=== PATIENT | male | born 1935 | race African-American/Black ===

== ENCOUNTER 2021-07-17 11:26 | Inpatient (IN) | payer OTHER, BC ==
[2021-07-17 12:24] VITALS: BMI 26.4
[2021-07-17 14:29] LABS: BASO % 0.7 % (0-2.0); EOS % 0.9 % (0-4.5); HEMATOCRIT 37.2 % (35.4-49); HEMOGLOBIN 12.1 GM/dL (11.7-16.9); LYMPH % 21.7 % (8-40); MCH 29.5 pg (25.7-33.7); MCHC 32.5 g/dl (32.0-35.9); MEAN CELL VOLUME 90.9 fl (80-96); MEAN PLT VOLUME 9.8 fl (7.5-11.1); MONO % 10.1 % (3.8-10.2); NEUT % 66.6 % (42.8-82.8); PLATELET COUNT 152 10^3/uL (134-434); RBC 4.09 M/mm3 (4.00-5.60); RDW 16.1 % (11.9-15.9); WHITE BLOOD COUNT 6.8 K/mm3 (4.0-10.0)
[2021-07-17 15:03] LABS: ALBUMIN 3.1 g/dl (3.4-5.0); CALCIUM 9.1 mg/dL (8.5-10.1); MAGNESIUM 2.4 mg/dL (1.8-2.4)
[2021-07-17 15:06] LABS: CREATININE 1.2 mg/dL (0.55-1.3)
[2021-07-17 15:08] LABS: BILIRUBIN,TOTAL 0.8 mg/dL (0.2-1); TOT PROT 6.7 g/dl (6.4-8.2)
[2021-07-17 15:19] LABS: BLOOD UREA NITROGEN 26.5 mg/dL (7-18)
[2021-07-17] MEDS ORDERED: FUROSEMIDE 40 MG/4 ML INJECTABLE VIAL IVPUSH ONE (15:31)
[2021-07-17] MEDS ORDERED: ASPIRIN 81 MG CHEWABLE TABLETS ONE (15:33)
[2021-07-17] MEDS ORDERED: FUROSEMIDE 40 MG TABLET (FP) ONE (15:47)
[2021-07-17 20:57] LABS: URINE APPEARANCE CLEAR; URINE BILIRUBIN NEGATIVE (NEGATIVE); URINE COLOR YELLOW; URINE GLUCOSE (UA) NEGATIVE (NEGATIVE); URINE KETONE NEGATIVE (NEGATIVE); URINE LEUK ESTERASE NEGATIVE (NEGATIVE); URINE NITRITE NEGATIVE (NEGATIVE); URINE PROTEIN NEGATIVE (NEGATIVE); URINE UROBILINOGEN 0.2 mg/dL (0.2-1.0)
[2021-07-17] MEDS ORDERED: MELATONIN 5 MG TABLETS PO ONE (21:05)
[2021-07-17] MEDS: APIXABAN 5 MG TABLET PO SCH (21:12)
[2021-07-17] MEDS: ATORVASTATIN CA 40 MG TABLET (FP) PO SCH (21:12)
[2021-07-17] MEDS: ASPIRIN 81 MG CHEWABLE TABLETS PO SCH (21:12)
[2021-07-17] MEDS: INSULIN SLIDING SCALE (NOVOLOG) 1 VIAL SQ SCH (21:16)
[2021-07-18] MEDS: INSULIN SLIDING SCALE (NOVOLOG) 1 VIAL SQ SCH ×4 (06:10→21:17)
[2021-07-18 08:08] LABS: ALBUMIN 2.9 g/dl (3.4-5.0); CALCIUM 8.3 mg/dL (8.5-10.1)
[2021-07-18 08:09] LABS: BLOOD UREA NITROGEN 15.1 mg/dL (7-18); MAGNESIUM 1.6 mg/dL (1.8-2.4)
[2021-07-18 08:11] LABS: CREATININE 0.7 mg/dL (0.55-1.3); PHOSPHOROUS 2.2 mg/dL (2.5-4.9)
[2021-07-18 08:13] LABS: BILIRUBIN,TOTAL 0.9 mg/dL (0.2-1); TOT PROT 6.6 g/dl (6.4-8.2)
[2021-07-18] MEDS ORDERED: PT OWN MED DRAWER 7, Y5N ONE (09:42)
[2021-07-18] MEDS: NIFEdipine E.R. 30 MG TABLET PO SCH (09:48)
[2021-07-18] MEDS: FUROSEMIDE 40 MG/4 ML INJECTABLE VIAL IVPUSH SCH (09:48)
[2021-07-18] MEDS: APIXABAN 5 MG TABLET PO SCH ×2 (09:48→21:08)
[2021-07-18] MEDS ORDERED: ENOXAPARIN NA (PORCINE) 40 MG/0.4 ML DISP.SYRIN SQ SCH (10:00)
[2021-07-18] MEDS ORDERED: FUROSEMIDE 40 MG/4 ML INJECTABLE VIAL IVPUSH SCH (10:00)
[2021-07-18] MEDS ORDERED: MAGNESIUM OXIDE 400 MG TABLET (FP) PO ONE (10:15)
[2021-07-18] MEDS ORDERED: PNEUMOC 13-VAL CONJ-DIP CRM/PF 0.5 ML DISP.SYRIN IM ONE (14:00)
[2021-07-18] MEDS: ENALAPRIL MALEATE 5 MG TABLET PO SCH (14:15)
[2021-07-18] MEDS ORDERED: MELATONIN 5 MG TABLETS PO PRN (19:28)
[2021-07-18] MEDS: ASPIRIN 81 MG CHEWABLE TABLETS PO SCH (21:07)
[2021-07-18] MEDS: DOCUSATE SODIUM 100 MG CAPSULE (FP) PO SCH (21:08)
[2021-07-18] MEDS: ATORVASTATIN CA 40 MG TABLET (FP) PO SCH (21:08)
[2021-07-18] MEDS: PREGABALIN 75 MG CAPSULE PO SCH (21:08)
[2021-07-18] MEDS: POLYETHYLENE GLYCOL (HEALTHYLAX) 3350 17 GM PACKET PO SCH (21:08)
[2021-07-19] MEDS: INSULIN SLIDING SCALE (NOVOLOG) 1 VIAL SQ SCH ×4 (06:54→21:40)
[2021-07-19] MEDS: MULTIVITAMINS (DAILY MVI) TABLET (FP) PO SCH (10:06)
[2021-07-19] MEDS: PREGABALIN 75 MG CAPSULE PO SCH ×4 (10:06→21:33)
[2021-07-19] MEDS: ENALAPRIL MALEATE 5 MG TABLET PO SCH (10:06)
[2021-07-19] MEDS: NIFEdipine E.R. 30 MG TABLET PO SCH (10:06)
[2021-07-19] MEDS: CYANOCOBALAMIN 1,000 MCG TABLET (FP) PO SCH (10:06)
[2021-07-19] MEDS: APIXABAN 5 MG TABLET PO SCH ×2 (10:06→21:33)
[2021-07-19] MEDS: ALLOPURINOL 300 MG TABLET (FP) PO SCH (10:06)
[2021-07-19] MEDS: POLYETHYLENE GLYCOL (HEALTHYLAX) 3350 17 GM PACKET PO SCH ×2 (10:06→21:29)
[2021-07-19] MEDS: FUROSEMIDE 40 MG/4 ML INJECTABLE VIAL IVPUSH SCH (10:06)
[2021-07-19] MEDS: metoPROLOL SUCCINATE 25 MG TAB.SR.24H (FP) PO SCH (11:41)
[2021-07-19] MEDS: metFORMIN HCL 500 MG TABLET (FP) PO SCH (12:20)
[2021-07-19] MEDS ORDERED: MAGNESIUM OXIDE 400 MG TABLET (FP) PO ONE (14:19)
[2021-07-19] MEDS: DOCUSATE SODIUM 100 MG CAPSULE (FP) PO SCH (21:32)
[2021-07-19] MEDS: ASPIRIN 81 MG CHEWABLE TABLETS PO SCH (21:33)
[2021-07-19] MEDS: ATORVASTATIN CA 40 MG TABLET (FP) PO SCH (21:42)
[2021-07-20] MEDS: metFORMIN HCL 500 MG TABLET (FP) PO SCH (06:02)
[2021-07-20] MEDS: INSULIN SLIDING SCALE (NOVOLOG) 1 VIAL SQ SCH ×4 (06:02→22:08)
[2021-07-20 07:49] LABS: BASO % 0.4 % (0-2.0); EOS % 2.1 % (0-4.5); HEMATOCRIT 37.1 % (35.4-49); HEMOGLOBIN 12.3 GM/dL (11.7-16.9); LYMPH % 29.1 % (8-40); MCH 29.6 pg (25.7-33.7); MCHC 33.2 g/dl (32.0-35.9); MEAN CELL VOLUME 89.4 fl (80-96); MEAN PLT VOLUME 9.7 fl (7.5-11.1); MONO % 11.6 % (3.8-10.2); NEUT % 56.8 % (42.8-82.8); PLATELET COUNT 158 10^3/uL (134-434); RBC 4.15 M/mm3 (4.00-5.60); RDW 15.7 % (11.9-15.9); WHITE BLOOD COUNT 6.2 K/mm3 (4.0-10.0)
[2021-07-20 08:39] LABS: ALBUMIN 2.7 g/dl (3.4-5.0); CALCIUM 8.6 mg/dL (8.5-10.1)
[2021-07-20 08:41] LABS: BLOOD UREA NITROGEN 19.9 mg/dL (7-18)
[2021-07-20 08:43] LABS: CREATININE 1.1 mg/dL (0.55-1.3); MAGNESIUM 2.1 mg/dL (1.8-2.4)
[2021-07-20 08:44] LABS: BILIRUBIN,TOTAL 0.8 mg/dL (0.2-1)
[2021-07-20] MEDS: POTASSIUM CHLORIDE TABS 20 MEQ TABLET.ER (FP) PO SCH ×2 (09:18→22:09)
[2021-07-20] MEDS: POLYETHYLENE GLYCOL (HEALTHYLAX) 3350 17 GM PACKET PO SCH ×2 (09:19→22:09)
[2021-07-20] MEDS: metoPROLOL SUCCINATE 25 MG TAB.SR.24H (FP) PO SCH (09:19)
[2021-07-20] MEDS: MULTIVITAMINS (DAILY MVI) TABLET (FP) PO SCH (09:19)
[2021-07-20] MEDS: PREGABALIN 75 MG CAPSULE PO SCH ×4 (09:19→22:09)
[2021-07-20] MEDS: APIXABAN 5 MG TABLET PO SCH ×2 (09:19→22:09)
[2021-07-20] MEDS: ENALAPRIL MALEATE 10 MG TABLET PO SCH (09:20)
[2021-07-20] MEDS: CYANOCOBALAMIN 1,000 MCG TABLET (FP) PO SCH (09:20)
[2021-07-20] MEDS: ALLOPURINOL 300 MG TABLET (FP) PO SCH (09:22)
[2021-07-20] MEDS ORDERED: FUROSEMIDE 40 MG TABLET (FP) PO SCH (10:00)
[2021-07-20] MEDS ORDERED: MAGNESIUM CITRATE 300 ML BOTTLE PO PRN (14:44)
[2021-07-20] MEDS ORDERED: LACTULOSE 20 GM/30 ML UDC (FOR ORAL USE ONLY) PO ONE (14:45)
[2021-07-20] MEDS: DOCUSATE SODIUM 100 MG CAPSULE (FP) PO SCH (22:08)
[2021-07-20] MEDS: ASPIRIN 81 MG CHEWABLE TABLETS PO SCH (22:09)
[2021-07-20] MEDS: ATORVASTATIN CA 40 MG TABLET (FP) PO SCH (22:09)
[2021-07-21] MEDS: INSULIN SLIDING SCALE (NOVOLOG) 1 VIAL SQ SCH ×4 (06:08→22:47)
[2021-07-21] MEDS: metFORMIN HCL 500 MG TABLET (FP) PO SCH (06:08)
[2021-07-21 08:05] LABS: BASO % 0.5 % (0-2.0); EOS % 2.4 % (0-4.5); HEMATOCRIT 36.4 % (35.4-49); HEMOGLOBIN 12.3 GM/dL (11.7-16.9); LYMPH % 24.4 % (8-40); MCH 29.9 pg (25.7-33.7); MCHC 33.8 g/dl (32.0-35.9); MEAN CELL VOLUME 88.5 fl (80-96); MEAN PLT VOLUME 9.5 fl (7.5-11.1); MONO % 9.8 % (3.8-10.2); NEUT % 62.9 % (42.8-82.8); PLATELET COUNT 155 10^3/uL (134-434); RBC 4.11 M/mm3 (4.00-5.60); RDW 15.6 % (11.9-15.9); WHITE BLOOD COUNT 6.2 K/mm3 (4.0-10.0)
[2021-07-21 08:37] LABS: ALBUMIN 2.8 g/dl (3.4-5.0); BLOOD UREA NITROGEN 25.6 mg/dL (7-18); CALCIUM 8.9 mg/dL (8.5-10.1)
[2021-07-21 08:38] LABS: MAGNESIUM 2.3 mg/dL (1.8-2.4)
[2021-07-21 08:41] LABS: CREATININE 1.2 mg/dL (0.55-1.3); TOT PROT 6.3 g/dl (6.4-8.2)
[2021-07-21 08:43] LABS: BILIRUBIN,TOTAL 0.8 mg/dL (0.2-1)
[2021-07-21] MEDS: APIXABAN 5 MG TABLET PO SCH ×2 (09:35→21:35)
[2021-07-21] MEDS: CYANOCOBALAMIN 1,000 MCG TABLET (FP) PO SCH (09:36)
[2021-07-21] MEDS: ALLOPURINOL 300 MG TABLET (FP) PO SCH (09:36)
[2021-07-21] MEDS: ENALAPRIL MALEATE 10 MG TABLET PO SCH (09:36)
[2021-07-21] MEDS: MULTIVITAMINS (DAILY MVI) TABLET (FP) PO SCH (09:36)
[2021-07-21] MEDS: metoPROLOL SUCCINATE 25 MG TAB.SR.24H (FP) PO SCH (09:36)
[2021-07-21] MEDS: POLYETHYLENE GLYCOL (HEALTHYLAX) 3350 17 GM PACKET PO SCH ×2 (09:36→21:35)
[2021-07-21] MEDS: PREGABALIN 75 MG CAPSULE PO SCH ×4 (09:36→21:36)
[2021-07-21] MEDS: BISACODYL 5 MG TABLET.DR (FP) PO PRN (11:57)
[2021-07-21] MEDS ORDERED: SODIUM PHOSPHATE/NA BIPHOS 133 ML ENEMA PR ONE (12:34)
[2021-07-21] MEDS: ASPIRIN 81 MG CHEWABLE TABLETS PO SCH (21:35)
[2021-07-21] MEDS: DOCUSATE SODIUM 100 MG CAPSULE (FP) PO SCH (21:35)
[2021-07-21] MEDS: ATORVASTATIN CA 40 MG TABLET (FP) PO SCH (21:36)
[2021-07-22] MEDS: metFORMIN HCL 500 MG TABLET (FP) PO SCH (06:35)
[2021-07-22] MEDS: INSULIN SLIDING SCALE (NOVOLOG) 1 VIAL SQ SCH ×2 (06:35→11:53)
[2021-07-22 07:23] VITALS: TEMP 98.3
[2021-07-22 08:53] LABS: BASO % 0.6 % (0-2.0); HEMOGLOBIN 12.5 GM/dL (11.7-16.9); MCHC 33.8 g/dl (32.0-35.9); MEAN CELL VOLUME 88.8 fl (80-96); MEAN PLT VOLUME 9.7 fl (7.5-11.1); MONO % 9.8 % (3.8-10.2); NEUT % 62.6 % (42.8-82.8); PLATELET COUNT 154 10^3/uL (134-434); RBC 4.17 M/mm3 (4.00-5.60); RDW 15.5 % (11.9-15.9)
[2021-07-22 09:06] LABS: CALCIUM 8.5 mg/dL (8.5-10.1)
[2021-07-22 09:07] LABS: ALBUMIN 2.6 g/dl (3.4-5.0); BLOOD UREA NITROGEN 22.8 mg/dL (7-18); MAGNESIUM 2.5 mg/dL (1.8-2.4)
[2021-07-22 09:10] LABS: CREATININE 1.1 mg/dL (0.55-1.3)
[2021-07-22 09:12] LABS: BILIRUBIN,TOTAL 0.6 mg/dL (0.2-1); TOT PROT 6.2 g/dl (6.4-8.2)
[2021-07-22] MEDS: CYANOCOBALAMIN 1,000 MCG TABLET (FP) PO SCH (09:29)
[2021-07-22] MEDS: ENALAPRIL MALEATE 10 MG TABLET PO SCH (09:29)
[2021-07-22] MEDS: MULTIVITAMINS (DAILY MVI) TABLET (FP) PO SCH (09:29)
[2021-07-22] MEDS: BISACODYL 5 MG TABLET.DR (FP) PO PRN (09:29)
[2021-07-22] MEDS: POLYETHYLENE GLYCOL (HEALTHYLAX) 3350 17 GM PACKET PO SCH (09:29)
[2021-07-22] MEDS: ALLOPURINOL 300 MG TABLET (FP) PO SCH (09:29)
[2021-07-22] MEDS: APIXABAN 5 MG TABLET PO SCH (09:29)
[2021-07-22] MEDS: PREGABALIN 75 MG CAPSULE PO SCH ×2 (09:29→15:00)
[2021-07-22] MEDS: metoPROLOL SUCCINATE 25 MG TAB.SR.24H (FP) PO SCH (09:29)
[2021-07-22] MEDS ORDERED: SODIUM PHOSPHATE/NA BIPHOS 133 ML ENEMA PR ONE (10:26)
[2021-07-22 15:26] VITALS: BP 98/54; PULSE 73
== END 2021-07-22 17:36 | disposition home or self-care (01) | DRG 175 ==
LOC: JER 11:26 → JERBED 15:51 → J4S 20:40
PROVIDERS: ADMIT Internal Medicine; ATTEND Nurse Practitioner Family
DX: I26.99 Other pulmonary embolism without acute cor pulmonale (principal); I50.43 Acute on chronic combined systolic (congestive) and diastolic (congestive) heart failure; E87.0 Hyperosmolality and hypernatremia; J98.11 Atelectasis; J90 Pleural effusion, not elsewhere classified; I24.8 Other forms of acute ischemic heart disease; I11.0 Hypertensive heart disease with heart failure; E78.5 Hyperlipidemia, unspecified; E11.9 Type 2 diabetes mellitus without complications; G62.9 Polyneuropathy, unspecified; Z85.46 Personal history of malignant neoplasm of prostate
CPT/HCPCS: 36415; 70450-TC; 71045-TC-FY; 71275-TC; 76705-TC; 80053; 80061; 81003; 82550; 82553; 82962; 83036; 83735; 83880; 84100; 84443; 84484; 85025; 93005; 93010; 93306-TC; 97116-GP; 97161-GP; 99285-25; C9803; Q9967; U0003; U0005

== ENCOUNTER 2021-12-16 04:26 | Day surgery (SDC) | payer OTHER, BC ==
[2021-12-15 15:33] VITALS: BMI 24.3
[2021-12-16] MEDS ORDERED: LIDOCAINE HCL 1% PRESERVATIVE FREE - 30ML VIAL IJ ONE (11:25)
[2021-12-16] MEDS ORDERED: IOHEXOL 180 MG/1 ML ML IJ ONE (11:25)
[2021-12-16] MEDS ORDERED: DEXAMETHASONE SOD PHOSPHATE 10 MG/1 ML VIAL IVPUSH ONE (11:26)
[2021-12-16 12:53] VITALS: BP 135/83; PULSE 81; TEMP 98.2
== END 2021-12-16 13:00 | disposition home or self-care (01) ==
LOC: JASU-SURG 04:26
PROVIDERS: ATTEND Pain Medicine Pain Medicine
PROC: 3E0R33Z Introduction of Anti-inflammatory into Spinal Canal, Percutaneous Approach (ICD-10-PCS; 2021-12-16)
PROC: B01BYZZ Fluoroscopy of Spinal Cord using Other Contrast (ICD-10-PCS; 2021-12-16)
PROC: 3E0R3BZ Introduction of Anesthetic Agent into Spinal Canal, Percutaneous Approach (ICD-10-PCS; principal; 2021-12-16 11:30)
DX: M54.16 Radiculopathy, lumbar region (principal); M48.061 Spinal stenosis, lumbar region without neurogenic claudication; I10 Essential (primary) hypertension; E11.42 Type 2 diabetes mellitus with diabetic polyneuropathy
CPT/HCPCS: 76000-TC-FY; J1100

== ENCOUNTER 2022-06-09 04:24 | Day surgery (SDC) | payer OTHER, BC ==
[2022-06-05 13:57] VITALS: BMI 23.4
[2022-06-09 06:27] VITALS: BP 135/83; PULSE 92; RESP 20; TEMP 98
== END 2022-06-09 09:00 | disposition home or self-care (01) ==
LOC: JASU-SURG 04:24
PROVIDERS: ATTEND Pain Medicine Pain Medicine
DX: Z53.8 Procedure and treatment not carried out for other reasons (principal)
CPT/HCPCS: 82962

== ENCOUNTER 2022-06-16 04:26 | Day surgery (SDC) | payer OTHER, BC ==
[2022-06-12 11:41] VITALS: BMI 23.4
[2022-06-16] MEDS ORDERED: LIDOCAINE HCL/PF 2% SDV 5ML VIAL ONE (07:35)
[2022-06-16] MEDS ORDERED: LIDOCAINE HCL/PF 1% SDV 5ML VIAL ONE (07:36)
[2022-06-16 07:48] VITALS: RESP 16
[2022-06-16] MEDS ORDERED: MIDAZOLAM HCL 2 MG/2 ML SINGLE DOSE VIAL ONE (08:25)
[2022-06-16] MEDS ORDERED: ONDANSETRON 4 MG/2 ML VIAL ONE (09:29)
[2022-06-16] MEDS ORDERED: CLINDAMYCIN 600MG PREMIX IVPB 600 MG/50 ML BAG IVPB ONE ×2 (09:34→09:55)
[2022-06-16] MEDS ORDERED: CLINDAMYCIN 600 MG PREMIX BAG IVPB ONE ×2 (09:35)
[2022-06-16] MEDS ORDERED: LIDOCAINE HCL 1% PRESERVATIVE FREE - 30ML VIAL IJ ONE ×2 (09:35)
[2022-06-16] MEDS ORDERED: IOHEXOL 180 MG/1 ML ML IJ ONE ×2 (09:45)
[2022-06-16] MEDS ORDERED: LIDOCAINE HCL/PF 2% SDV 5ML VIAL INF ONE ×2 (09:46)
[2022-06-16] MEDS ORDERED: DEXAMETHASONE SOD PHOSPHATE 10 MG/1 ML VIAL IVPUSH ONE (10:42)
[2022-06-16 12:58] VITALS: BP 134/79; PULSE 82; TEMP 97.2
== END 2022-06-16 13:14 | disposition home or self-care (01) ==
LOC: JASU-SURG 04:26
PROVIDERS: ATTEND Pain Medicine Pain Medicine
PROC: BR19ZZZ Fluoroscopy of Lumbar Spine (ICD-10-PCS; 2022-06-16)
PROC: 01NB3ZZ Release Lumbar Nerve, Percutaneous Approach (ICD-10-PCS; principal; 2022-06-16 08:30)
DX: M48.062 Spinal stenosis, lumbar region with neurogenic claudication (principal); E11.9 Type 2 diabetes mellitus without complications; I10 Essential (primary) hypertension; Z79.84 Long term (current) use of oral hypoglycemic drugs
CPT/HCPCS: 0275T; C1889; 76000-TC-FY; 82962; 88304-TC; J1100

== ENCOUNTER 2022-07-17 04:10 | Day surgery (SDC) | payer OTHER, BC ==
[2022-07-16 12:15] VITALS: BMI 23.6
[2022-07-17] MEDS ORDERED: BUPIVACAINE HCL/PF 0.5% (5MG/ML) 10 ML VIAL ONE (07:18)
[2022-07-17] MEDS ORDERED: LIDOCAINE HCL/PF 1% SDV 5ML VIAL ONE (07:18)
[2022-07-17] MEDS ORDERED: TRIAMCINOLONE ACET 40MG/1ML VIAL ONE (07:18)
[2022-07-17] MEDS ORDERED: LIDOCAINE HCL 1% PRESERVATIVE FREE - 30ML VIAL IJ ONE (12:34)
[2022-07-17] MEDS ORDERED: TRIAMCINOLONE ACET 40MG/1ML VIAL IJ ONE (12:34)
[2022-07-17] MEDS ORDERED: BUPIVACAINE HCL/PF 0.5% (5 MG/ML) 30 ML VIAL IJ ONE (12:34)
[2022-07-17 12:43] VITALS: RESP 20
[2022-07-17 14:34] VITALS: BP 140/80; PULSE 80; TEMP 98.6
== END 2022-07-17 14:30 | disposition home or self-care (01) ==
LOC: JASU-SURG 04:10
PROVIDERS: ATTEND Pain Medicine Pain Medicine
PROC: 3E0U3BZ Introduction of Anesthetic Agent into Joints, Percutaneous Approach (ICD-10-PCS; 2022-07-17)
PROC: 3E0U33Z Introduction of Anti-inflammatory into Joints, Percutaneous Approach (ICD-10-PCS; principal; 2022-07-17 13:30)
DX: M53.3 Sacrococcygeal disorders, not elsewhere classified (principal); I10 Essential (primary) hypertension; E11.40 Type 2 diabetes mellitus with diabetic neuropathy, unspecified
CPT/HCPCS: 76000-TC-FY

== ENCOUNTER 2022-11-23 04:16 | Inpatient (IN) | payer OTHER, BC ==
[2022-11-23 04:31] VITALS: BMI 23.3
[2022-11-23] MEDS ORDERED: ACETAMINOPHEN 1000 MG/100 ML BAG IVPB ONE (05:37)
[2022-11-23] MEDS ORDERED: ACETAMINOPHEN INJECTION 100 ML IVPB ONE (05:46)
[2022-11-23] MEDS ORDERED: morphine CARPU-JECT 2 MG/1 ML DISP.SYRIN IVPUSH ONE (05:50)
[2022-11-23] MEDS ORDERED: KETOROLAC TROMETHAMINE 30 MG/1 ML VIAL IVPUSH ONE (06:22)
[2022-11-23] MEDS ORDERED: KETOROLAC TROMETHAMINE 30 MG/1 ML VIAL ONE (06:41)
[2022-11-23 06:45] LABS: BASO % 0.4 % (0-2.0); EOS % 0.1 % (0-4.5); HEMATOCRIT 39.3 % (35.4-49); HEMOGLOBIN 13.4 GM/dL (11.7-16.9); LYMPH % 5.2 % (8-40); MCHC 34.1 g/dl (32.0-35.9); MEAN CELL VOLUME 87.9 fl (80-96); MEAN PLT VOLUME 8.9 fl (7.5-11.1); MONO % 5.9 % (3.8-10.2); NEUT % 88.4 % (42.8-82.8); PLATELET COUNT 158 10^3/uL (134-434); RBC 4.48 M/mm3 (4.00-5.60); RDW 16.5 % (11.9-15.9); WHITE BLOOD COUNT 11.1 K/mm3 (4.0-10.0)
[2022-11-23 06:50] LABS: INR 1.48 (0.83-1.09); PROTHROMBIN TIME (PATIENT) 17.1 SEC (9.7-13.0)
[2022-11-23 06:52] LABS: ACTIVATED PTT 29.6 SECONDS (25.2-36.5)
[2022-11-23 07:10] LABS: CALCIUM 9.4 mg/dL (8.5-10.1)
[2022-11-23 07:11] LABS: ALBUMIN 3.8 g/dl (3.4-5.0); BLOOD UREA NITROGEN 24.4 mg/dL (7-18)
[2022-11-23 07:15] LABS: BILIRUBIN,TOTAL 1.2 mg/dL (0.2-1)
[2022-11-23 07:16] LABS: TOT PROT 7.6 g/dl (6.4-8.2)
[2022-11-23] MEDS ORDERED: ACETAMINOPHEN 1000 MG/100 ML BAG IVPB PRN (11:16)
[2022-11-23 11:27] LABS: BILIRUBIN,DIRECT 0.4 mg/dL (0.0-0.2)
[2022-11-23] MEDS ORDERED: NIFEdipine E.R. 30 MG TABLET PO SCH (11:30)
[2022-11-23] MEDS ORDERED: ENALAPRIL MALEATE 5 MG TABLET ONE (12:21)
[2022-11-23] MEDS ORDERED: POLYETHYLENE GLYCOL (HEALTHYLAX) 3350 17 GM PACKET ONE (12:21)
[2022-11-23] MEDS ORDERED: APIXABAN 5 MG TABLET ONE (12:22)
[2022-11-23] MEDS ORDERED: CHOLECALCIFEROL (VIT D3) 1,000 UNIT (25 MCG) TABLET ONE ×2 (12:22→12:25)
[2022-11-23] MEDS ORDERED: NIFEdipine E.R. 30 MG TABLET PO ONE (12:22)
[2022-11-23] MEDS ORDERED: LIDOCAINE 5% TOPICAL PATCH ONE (12:22)
[2022-11-23] MEDS: APIXABAN 5 MG TABLET PO SCH ×2 (12:56→21:15)
[2022-11-23] MEDS: LIDOCAINE 5% TOPICAL PATCH TP SCH (12:56)
[2022-11-23] MEDS: POLYETHYLENE GLYCOL (HEALTHYLAX) 3350 17 GM PACKET PO SCH (12:57)
[2022-11-23] MEDS: ALLOPURINOL 300 MG TABLET (FP) PO SCH (12:57)
[2022-11-23] MEDS: INSULIN SLIDING SCALE (NOVOLOG) 1 VIAL SQ SCH ×2 (20:34→21:14)
[2022-11-23] MEDS: PREGABALIN 75 MG CAPSULE PO SCH (21:15)
[2022-11-23] MEDS: LIDOCAINE PATCH REMOVAL MC SCH (21:18)
[2022-11-23] MEDS: SENNOSIDES 8.6MG TABLET (FP) PO SCH (21:35)
[2022-11-23] MEDS ORDERED: ROSUVASTATIN CA 10 MG TABLET PO SCH (22:00)
[2022-11-23] MEDS ORDERED: metoPROLOL SUCCINATE 25 MG TAB.SR.24H (FP) PO ONE (22:14)
[2022-11-24] MEDS ORDERED: metoPROLOL SUCCINATE 25 MG TAB.SR.24H (FP) PO ONE (01:45)
[2022-11-24] MEDS: PREGABALIN 75 MG CAPSULE PO SCH ×6 (06:22→22:00)
[2022-11-24] MEDS: INSULIN SLIDING SCALE (NOVOLOG) 1 VIAL SQ SCH ×4 (06:28→21:58)
[2022-11-24 08:53] LABS: HEMATOCRIT 35.4 % (35.4-49); HEMOGLOBIN 12.1 GM/dL (11.7-16.9); LYMPH % 12.3 % (8-40); MCH 30.1 pg (25.7-33.7); MCHC 34.2 g/dl (32.0-35.9); MEAN CELL VOLUME 88.1 fl (80-96); MEAN PLT VOLUME 9.6 fl (7.5-11.1); MONO % 5.2 % (3.8-10.2); NEUT % 78.5 % (42.8-82.8); PLATELET COUNT 134 10^3/uL (134-434); RBC 4.01 M/mm3 (4.00-5.60); RDW 16.5 % (11.9-15.9); WHITE BLOOD COUNT 7.8 K/mm3 (4.0-10.0)
[2022-11-24 09:11] LABS: CALCIUM 8.9 mg/dL (8.5-10.1)
[2022-11-24 09:12] LABS: BLOOD UREA NITROGEN 31.2 mg/dL (7-18); MAGNESIUM 1.9 mg/dL (1.8-2.4)
[2022-11-24 09:15] LABS: CREATININE 1.2 mg/dL (0.55-1.3); PHOSPHOROUS 3.4 mg/dL (2.5-4.9)
[2022-11-24 09:16] LABS: BILIRUBIN,TOTAL 0.9 mg/dL (0.2-1)
[2022-11-24] MEDS: CHOLECALCIFEROL (VIT D3) 1,000 UNIT (25 MCG) TABLET PO SCH (09:48)
[2022-11-24] MEDS: POLYETHYLENE GLYCOL (HEALTHYLAX) 3350 17 GM PACKET PO SCH (09:48)
[2022-11-24] MEDS: APIXABAN 5 MG TABLET PO SCH ×2 (09:49→21:58)
[2022-11-24] MEDS: metoPROLOL SUCCINATE 25 MG TAB.SR.24H (FP) PO SCH (09:49)
[2022-11-24] MEDS: CYANOCOBALAMIN 1,000 MCG TABLET (FP) PO SCH (09:49)
[2022-11-24] MEDS: LIDOCAINE 5% TOPICAL PATCH TP SCH (09:49)
[2022-11-24 10:00] LABS: ALBUMIN 2.9 g/dl (3.4-5.0)
[2022-11-24] MEDS: ALLOPURINOL 300 MG TABLET (FP) PO SCH (10:06)
[2022-11-24] MEDS: ENALAPRIL MALEATE 5 MG TABLET PO SCH (12:09)
[2022-11-24 12:51] LABS: N-TERMINAL BNP 3476.2 pg/ml (5-450)
[2022-11-24] MEDS: ACETAMINOPHEN 650 MG/20.3 ML ORAL SOLUTION (CUPS) PO SCH ×2 (16:42→21:59)
[2022-11-24] MEDS ORDERED: NITROGLYCERIN SUBLINGUAL 1/150 0.4 MG TAB ONE (19:42)
[2022-11-24] MEDS: ATORVASTATIN CA 40 MG TABLET (FP) PO SCH (21:59)
[2022-11-24] MEDS ORDERED: ATORVASTATIN CA 80 MG TABLET (FP) PO SCH (22:00)
[2022-11-24] MEDS: LIDOCAINE PATCH REMOVAL MC SCH (22:00)
[2022-11-24] MEDS: SENNOSIDES 8.6MG TABLET (FP) PO SCH (22:01)
[2022-11-25] MEDS: ACETAMINOPHEN 650 MG/20.3 ML ORAL SOLUTION (CUPS) PO SCH ×4 (04:25→21:34)
[2022-11-25] MEDS: INSULIN SLIDING SCALE (NOVOLOG) 1 VIAL SQ SCH ×4 (06:06→21:33)
[2022-11-25 07:37] LABS: HEMATOCRIT 36.4 % (35.4-49); HEMOGLOBIN 12.4 GM/dL (11.7-16.9); MCH 30.1 pg (25.7-33.7); MCHC 34.1 g/dl (32.0-35.9); MEAN CELL VOLUME 88.3 fl (80-96); MEAN PLT VOLUME 9.8 fl (7.5-11.1); PLATELET COUNT 119 10^3/uL (134-434); RBC 4.12 M/mm3 (4.00-5.60); RDW 16.3 % (11.9-15.9); WHITE BLOOD COUNT 7.4 K/mm3 (4.0-10.0)
[2022-11-25 08:05] LABS: CALCIUM 9.1 mg/dL (8.5-10.1)
[2022-11-25 08:06] LABS: BLOOD UREA NITROGEN 31.3 mg/dL (7-18); MAGNESIUM 2.2 mg/dL (1.8-2.4)
[2022-11-25 08:08] LABS: CREATININE 1.1 mg/dL (0.55-1.3)
[2022-11-25 08:09] LABS: PHOSPHOROUS 3.6 mg/dL (2.5-4.9)
[2022-11-25 08:10] LABS: BILIRUBIN,TOTAL 0.9 mg/dL (0.2-1); TOT PROT 6.4 g/dl (6.4-8.2)
[2022-11-25] MEDS: ENALAPRIL MALEATE 5 MG TABLET PO SCH (09:33)
[2022-11-25] MEDS: ALLOPURINOL 300 MG TABLET (FP) PO SCH (09:34)
[2022-11-25] MEDS: POLYETHYLENE GLYCOL (HEALTHYLAX) 3350 17 GM PACKET PO SCH (09:34)
[2022-11-25] MEDS: APIXABAN 5 MG TABLET PO SCH ×2 (09:34→21:32)
[2022-11-25] MEDS: CHOLECALCIFEROL (VIT D3) 1,000 UNIT (25 MCG) TABLET PO SCH (09:34)
[2022-11-25] MEDS: metoPROLOL SUCCINATE 25 MG TAB.SR.24H (FP) PO SCH (09:34)
[2022-11-25] MEDS: CYANOCOBALAMIN 1,000 MCG TABLET (FP) PO SCH (09:34)
[2022-11-25] MEDS: PREGABALIN 75 MG CAPSULE PO SCH ×4 (09:34→21:32)
[2022-11-25] MEDS: LIDOCAINE 5% TOPICAL PATCH TP SCH (09:34)
[2022-11-25] MEDS: ATORVASTATIN CA 40 MG TABLET (FP) PO SCH (21:32)
[2022-11-25] MEDS: LIDOCAINE PATCH REMOVAL MC SCH (21:32)
[2022-11-25] MEDS: SENNOSIDES 8.6MG TABLET (FP) PO SCH (21:38)
[2022-11-26] MEDS: ACETAMINOPHEN 650 MG/20.3 ML ORAL SOLUTION (CUPS) PO SCH ×2 (04:28→11:08)
[2022-11-26 05:51] VITALS: RESP 18; TEMP 97.4
[2022-11-26] MEDS: INSULIN SLIDING SCALE (NOVOLOG) 1 VIAL SQ SCH ×2 (06:16→11:20)
[2022-11-26] MEDS: metoPROLOL SUCCINATE 25 MG TAB.SR.24H (FP) PO SCH (11:09)
[2022-11-26] MEDS: APIXABAN 5 MG TABLET PO SCH (11:09)
[2022-11-26] MEDS: CYANOCOBALAMIN 1,000 MCG TABLET (FP) PO SCH (11:09)
[2022-11-26] MEDS: CHOLECALCIFEROL (VIT D3) 1,000 UNIT (25 MCG) TABLET PO SCH (11:09)
[2022-11-26] MEDS: PREGABALIN 75 MG CAPSULE PO SCH (11:09)
[2022-11-26] MEDS: ENALAPRIL MALEATE 5 MG TABLET PO SCH (11:09)
[2022-11-26] MEDS: LIDOCAINE 5% TOPICAL PATCH TP SCH (11:10)
[2022-11-26] MEDS: POLYETHYLENE GLYCOL (HEALTHYLAX) 3350 17 GM PACKET PO SCH (11:10)
[2022-11-26] MEDS ORDERED: INSULIN SLIDING SCALE (NOVOLOG) 1 VIAL SQ ONE (11:19)
[2022-11-26] MEDS: ALLOPURINOL 300 MG TABLET (FP) PO SCH (11:21)
[2022-11-26 17:12] VITALS: BP 102/60; PULSE 70
== END 2022-11-26 13:40 | DRG 65 ==
LOC: JER 04:16 → JERBED 06:56 → J4S 15:48
PROVIDERS: ADMIT Internal Medicine; ATTEND Internal Medicine
DX: I63.9 Cerebral infarction, unspecified (principal); I47.20 Ventricular tachycardia, unspecified; I50.42 Chronic combined systolic (congestive) and diastolic (congestive) heart failure; M25.511 Pain in right shoulder; M79.604 Pain in right leg; M48.00 Spinal stenosis, site unspecified; M25.551 Pain in right hip; E78.5 Hyperlipidemia, unspecified; E11.42 Type 2 diabetes mellitus with diabetic polyneuropathy; J45.909 Unspecified asthma, uncomplicated; I11.0 Hypertensive heart disease with heart failure; I25.2 Old myocardial infarction
CPT/HCPCS: 36415; 70450-TC; 70496-TC; 70498-TC; 70551-TC; 70552-TC; 72125-TC; 72192-TC; 73030-TC-RT-FY; 73060-TC-RT-FY; 73700-TC-RT; 80053; 80061; 82248; 82550; 82962; 83036; 83735; 83880; 84100; 84436; 84439; 84443; 84484; 85025; 85027; 85610; 85730; 86850; 86900; 86901; 93005; 93010; 93306-TC; 97116-GP; 97162-GP; 99285-25; C9803-CS; Q9967; U0003; U0005

== ENCOUNTER 2022-12-24 10:24 | Inpatient (IN) | payer OTHER, BC ==
[2022-12-24 11:28] LABS: INR 1.38 (0.83-1.09); PROTHROMBIN TIME (PATIENT) 15.9 SEC (9.7-13.0)
[2022-12-24 11:29] LABS: HEMATOCRIT 31.5 % (35.4-49); HEMOGLOBIN 10.6 GM/dL (11.7-16.9); MCH 30.7 pg (25.7-33.7); MCHC 33.7 g/dl (32.0-35.9); MEAN CELL VOLUME 91.2 fl (80-96); MEAN PLT VOLUME 7.6 fl (7.5-11.1); PLATELET COUNT 231 10^3/uL (134-434); RBC 3.46 M/mm3 (4.00-5.60); RDW 17.3 % (11.9-15.9); WHITE BLOOD COUNT 7.8 K/mm3 (4.0-10.0)
[2022-12-24 11:31] LABS: ACTIVATED PTT 30.2 SECONDS (25.2-36.5)
[2022-12-24 11:38] LABS: POTASSIUM 5.2 mmol/L (3.5-5.1)
[2022-12-24 11:40] LABS: CALCIUM 8.7 mg/dL (8.5-10.1)
[2022-12-24 11:41] LABS: ALBUMIN 2.8 g/dl (3.4-5.0); BLOOD UREA NITROGEN 21.5 mg/dL (7-18)
[2022-12-24 11:44] LABS: CREATININE 1.1 mg/dL (0.55-1.3)
[2022-12-24 11:45] LABS: BILIRUBIN,TOTAL 0.6 mg/dL (0.2-1)
[2022-12-24 11:46] LABS: TOT PROT 6.1 g/dl (6.4-8.2)
[2022-12-24] MEDS ORDERED: SODIUM CHLORIDE 0.9% 500 ML INFUS.BAG IV ONE (13:55)
[2022-12-24 14:34] LABS: N-TERMINAL BNP 5855.6 pg/ml (5-450)
[2022-12-24] MEDS ORDERED: FUROSEMIDE 40 MG/4 ML INJECTABLE VIAL IVPUSH ONE (15:19)
[2022-12-24] MEDS ORDERED: FUROSEMIDE 40 MG/4 ML INJECTABLE VIAL ONE (15:35)
[2022-12-24] MEDS ORDERED: APIXABAN 5 MG TABLET PO ONE (15:43)
[2022-12-24] MEDS ORDERED: APIXABAN 5 MG TABLET ONE (16:16)
[2022-12-24 17:01] LABS: PH,URINE 6.5 (5.0-8.0); URINE APPEARANCE CLEAR; URINE BILIRUBIN NEGATIVE (NEGATIVE); URINE COLOR YELLOW; URINE GLUCOSE (UA) NEGATIVE (NEGATIVE); URINE KETONE NEGATIVE (NEGATIVE); URINE LEUK ESTERASE NEGATIVE (NEGATIVE); URINE NITRITE NEGATIVE (NEGATIVE); URINE PROTEIN NEGATIVE (NEGATIVE); URINE UROBILINOGEN 0.2 mg/dL (0.2-1.0)
[2022-12-24 18:55] LABS: RETICULOCYTES 1.56 % (0.5-1.5)
[2022-12-24] MEDS: PREGABALIN 75 MG CAPSULE PO SCH (22:45)
[2022-12-24] MEDS: SENNOSIDES 8.6MG TABLET (FP) PO SCH (22:45)
[2022-12-24] MEDS: APIXABAN 5 MG TABLET PO SCH (22:45)
[2022-12-24] MEDS: ATORVASTATIN CA 40 MG TABLET (FP) PO SCH (22:46)
[2022-12-24] MEDS: INSULIN SLIDING SCALE (NOVOLOG) 1 VIAL SQ SCH (22:46)
[2022-12-24] MEDS: DOCUSATE SODIUM 100 MG CAPSULE (FP) PO SCH (22:46)
[2022-12-24] MEDS: MELATONIN 1 MG TABLET PO SCH (22:46)
[2022-12-24] MEDS ORDERED: ACETAMINOPHEN 325 MG TABLET (FP) PO PRN ×2 (23:05→23:09)
[2022-12-25 01:49] VITALS: BMI 25.7
[2022-12-25] MEDS: LIDOCAINE PATCH REMOVAL MC SCH ×2 (06:28→21:39)
[2022-12-25] MEDS: DOCUSATE SODIUM 100 MG CAPSULE (FP) PO SCH ×3 (06:29→21:39)
[2022-12-25] MEDS: INSULIN SLIDING SCALE (NOVOLOG) 1 VIAL SQ SCH ×4 (06:32→23:37)
[2022-12-25] MEDS: PANTOPRAZOLE 40 MG TABLET PO SCH (06:32)
[2022-12-25 07:24] LABS: BASO % 0.6 % (0-2.0); EOS % 1.9 % (0-4.5); HEMATOCRIT 28.7 % (35.4-49); HEMOGLOBIN 9.9 GM/dL (11.7-16.9); LYMPH % 18.5 % (8-40); MCH 30.9 pg (25.7-33.7); MCHC 34.6 g/dl (32.0-35.9); MEAN CELL VOLUME 89.3 fl (80-96); MEAN PLT VOLUME 7.8 fl (7.5-11.1); MONO % 9.7 % (3.8-10.2); NEUT % 69.3 % (42.8-82.8); PLATELET COUNT 239 10^3/uL (134-434); RBC 3.21 M/mm3 (4.00-5.60); RDW 17.4 % (11.9-15.9); WHITE BLOOD COUNT 6.6 K/mm3 (4.0-10.0)
[2022-12-25 07:38] LABS: POTASSIUM 3.8 mmol/L (3.5-5.1)
[2022-12-25 07:58] LABS: ALBUMIN 2.6 g/dl (3.4-5.0); BLOOD UREA NITROGEN 19.1 mg/dL (7-18); CALCIUM 8.7 mg/dL (8.5-10.1); MAGNESIUM 1.7 mg/dL (1.8-2.4)
[2022-12-25 08:01] LABS: CREATININE 0.9 mg/dL (0.55-1.3); PHOSPHOROUS 3.2 mg/dL (2.5-4.9)
[2022-12-25 08:02] LABS: TOT PROT 5.9 g/dl (6.4-8.2)
[2022-12-25] MEDS ORDERED: MAGNESIUM 2GM/50ML STERILE WATER IVPB IVPB ONE (09:10)
[2022-12-25] MEDS: APIXABAN 5 MG TABLET PO SCH ×2 (09:46→21:38)
[2022-12-25] MEDS: PREGABALIN 75 MG CAPSULE PO SCH ×4 (09:46→21:38)
[2022-12-25] MEDS: CYANOCOBALAMIN 1,000 MCG TABLET (FP) PO SCH (09:46)
[2022-12-25] MEDS: POLYETHYLENE GLYCOL (HEALTHYLAX) 3350 17 GM PACKET PO SCH (09:47)
[2022-12-25] MEDS: CHOLECALCIFEROL (VIT D3) 1,000 UNIT (25 MCG) TABLET PO SCH (09:47)
[2022-12-25] MEDS: ALLOPURINOL 300 MG TABLET (FP) PO SCH (09:47)
[2022-12-25] MEDS: metoPROLOL SUCCINATE 25 MG TAB.SR.24H (FP) PO SCH (09:47)
[2022-12-25] MEDS: MULTIVITAMINS (DAILY MVI) TABLET (FP) PO SCH (09:47)
[2022-12-25] MEDS ORDERED: ENALAPRIL MALEATE 5 MG TABLET PO SCH (10:00)
[2022-12-25] MEDS: LIDOCAINE 5% TOPICAL PATCH TP PRN (10:00)
[2022-12-25] MEDS: FUROSEMIDE 40 MG/4 ML INJECTABLE VIAL IVPUSH SCH (13:26)
[2022-12-25] MEDS ORDERED: POTASSIUM CHLORIDE TABS 20 MEQ TABLET.ER (FP) PO ONE (17:04)
[2022-12-25] MEDS: SENNOSIDES 8.6MG TABLET (FP) PO SCH (21:38)
[2022-12-25] MEDS: MELATONIN 1 MG TABLET PO SCH (21:38)
[2022-12-25] MEDS: ATORVASTATIN CA 40 MG TABLET (FP) PO SCH (21:39)
[2022-12-26] MEDS: FUROSEMIDE 40 MG/4 ML INJECTABLE VIAL IVPUSH SCH ×2 (06:40→14:41)
[2022-12-26] MEDS: PANTOPRAZOLE 40 MG TABLET PO SCH (06:40)
[2022-12-26] MEDS: INSULIN SLIDING SCALE (NOVOLOG) 1 VIAL SQ SCH ×4 (06:40→22:42)
[2022-12-26] MEDS: DOCUSATE SODIUM 100 MG CAPSULE (FP) PO SCH ×3 (06:40→22:39)
[2022-12-26 07:31] LABS: HEMATOCRIT 31.7 % (35.4-49); HEMOGLOBIN 10.7 GM/dL (11.7-16.9); MCH 29.9 pg (25.7-33.7); MCHC 33.7 g/dl (32.0-35.9); MEAN CELL VOLUME 88.8 fl (80-96); MEAN PLT VOLUME 7.3 fl (7.5-11.1); PLATELET COUNT 261 10^3/uL (134-434); RBC 3.57 M/mm3 (4.00-5.60); WHITE BLOOD COUNT 6.4 K/mm3 (4.0-10.0)
[2022-12-26 07:46] LABS: POTASSIUM 4.2 mmol/L (3.5-5.1)
[2022-12-26 07:51] LABS: ALBUMIN 2.7 g/dl (3.4-5.0); CALCIUM 9.2 mg/dL (8.5-10.1)
[2022-12-26 07:52] LABS: BLOOD UREA NITROGEN 17.4 mg/dL (7-18)
[2022-12-26 07:54] LABS: PHOSPHOROUS 3.5 mg/dL (2.5-4.9)
[2022-12-26 07:56] LABS: TOT PROT 6.2 g/dl (6.4-8.2)
[2022-12-26] MEDS: CHOLECALCIFEROL (VIT D3) 1,000 UNIT (25 MCG) TABLET PO SCH (11:08)
[2022-12-26] MEDS: ALLOPURINOL 300 MG TABLET (FP) PO SCH (11:08)
[2022-12-26] MEDS: ASPIRIN COATED 81 MG TABLET.EC PO SCH (11:08)
[2022-12-26] MEDS: MULTIVITAMINS (DAILY MVI) TABLET (FP) PO SCH (11:08)
[2022-12-26] MEDS: ENALAPRIL MALEATE 5 MG TABLET PO SCH (11:08)
[2022-12-26] MEDS: CYANOCOBALAMIN 1,000 MCG TABLET (FP) PO SCH (11:08)
[2022-12-26] MEDS: metoPROLOL SUCCINATE 25 MG TAB.SR.24H (FP) PO SCH (11:08)
[2022-12-26] MEDS: POLYETHYLENE GLYCOL (HEALTHYLAX) 3350 17 GM PACKET PO SCH (11:09)
[2022-12-26] MEDS: APIXABAN 5 MG TABLET PO SCH ×2 (11:09→22:46)
[2022-12-26] MEDS: PREGABALIN 75 MG CAPSULE PO SCH ×4 (11:09→22:40)
[2022-12-26] MEDS: LIDOCAINE 5% TOPICAL PATCH TP PRN (14:44)
[2022-12-26] MEDS: LIDOCAINE PATCH REMOVAL MC SCH (22:39)
[2022-12-26] MEDS: SENNOSIDES 8.6MG TABLET (FP) PO SCH (22:40)
[2022-12-26] MEDS: MELATONIN 1 MG TABLET PO SCH (22:40)
[2022-12-26] MEDS: ATORVASTATIN CA 40 MG TABLET (FP) PO SCH (22:40)
[2022-12-27] MEDS: DOCUSATE SODIUM 100 MG CAPSULE (FP) PO SCH ×3 (06:23→21:47)
[2022-12-27] MEDS: FUROSEMIDE 40 MG/4 ML INJECTABLE VIAL IVPUSH SCH ×2 (06:23→14:37)
[2022-12-27] MEDS: PANTOPRAZOLE 40 MG TABLET PO SCH (06:23)
[2022-12-27] MEDS: INSULIN SLIDING SCALE (NOVOLOG) 1 VIAL SQ SCH ×4 (06:24→21:48)
[2022-12-27 08:18] LABS: HEMATOCRIT 32.2 % (35.4-49); HEMOGLOBIN 10.9 GM/dL (11.7-16.9); MCH 30.2 pg (25.7-33.7); MCHC 33.9 g/dl (32.0-35.9); MEAN PLT VOLUME 7.4 fl (7.5-11.1); PLATELET COUNT 276 10^3/uL (134-434); RBC 3.62 M/mm3 (4.00-5.60); RDW 16.9 % (11.9-15.9); WHITE BLOOD COUNT 6.3 K/mm3 (4.0-10.0)
[2022-12-27 08:44] LABS: ALBUMIN 2.6 g/dl (3.4-5.0); BLOOD UREA NITROGEN 20.1 mg/dL (7-18)
[2022-12-27 09:01] LABS: BILIRUBIN,TOTAL 0.7 mg/dL (0.2-1); CALCIUM 8.7 mg/dL (8.5-10.1)
[2022-12-27] MEDS: APIXABAN 5 MG TABLET PO SCH ×2 (09:31→21:47)
[2022-12-27] MEDS: MULTIVITAMINS (DAILY MVI) TABLET (FP) PO SCH (09:31)
[2022-12-27] MEDS: PREGABALIN 75 MG CAPSULE PO SCH ×4 (09:31→21:49)
[2022-12-27] MEDS: ALLOPURINOL 300 MG TABLET (FP) PO SCH (09:31)
[2022-12-27] MEDS: POLYETHYLENE GLYCOL (HEALTHYLAX) 3350 17 GM PACKET PO SCH (09:31)
[2022-12-27] MEDS: metoPROLOL SUCCINATE 25 MG TAB.SR.24H (FP) PO SCH (09:32)
[2022-12-27] MEDS: ENALAPRIL MALEATE 5 MG TABLET PO SCH (09:32)
[2022-12-27] MEDS: CHOLECALCIFEROL (VIT D3) 1,000 UNIT (25 MCG) TABLET PO SCH (09:32)
[2022-12-27] MEDS: ASPIRIN COATED 81 MG TABLET.EC PO SCH (09:32)
[2022-12-27] MEDS: CYANOCOBALAMIN 1,000 MCG TABLET (FP) PO SCH (09:32)
[2022-12-27] MEDS: NIFEdipine E.R. 30 MG TABLET PO SCH (09:32)
[2022-12-27] MEDS ORDERED: INSULIN (NOVOLOG) ASPART 100 UNITS/ML 10ML VIAL ONE ×2 (11:35→21:13)
[2022-12-27] MEDS: SENNOSIDES 8.6MG TABLET (FP) PO SCH (21:48)
[2022-12-27] MEDS: MELATONIN 1 MG TABLET PO SCH (21:48)
[2022-12-27] MEDS: ATORVASTATIN CA 40 MG TABLET (FP) PO SCH (21:49)
[2022-12-28] MEDS: LIDOCAINE PATCH REMOVAL MC SCH ×2 (02:28→21:59)
[2022-12-28] MEDS: PANTOPRAZOLE 40 MG TABLET PO SCH (06:42)
[2022-12-28] MEDS: FUROSEMIDE 40 MG/4 ML INJECTABLE VIAL IVPUSH SCH ×2 (06:42→15:21)
[2022-12-28] MEDS: INSULIN SLIDING SCALE (NOVOLOG) 1 VIAL SQ SCH ×4 (06:42→21:59)
[2022-12-28] MEDS: DOCUSATE SODIUM 100 MG CAPSULE (FP) PO SCH ×3 (06:42→21:58)
[2022-12-28 08:36] LABS: INR 2.28 (0.83-1.09); PROTHROMBIN TIME (PATIENT) 26.2 SEC (9.7-13.0)
[2022-12-28 08:38] LABS: ACTIVATED PTT 36.9 SECONDS (25.2-36.5)
[2022-12-28 08:47] LABS: BASO % 0.5 % (0-2.0); EOS % 1.9 % (0-4.5); HEMATOCRIT 36.7 % (35.4-49); HEMOGLOBIN 12.4 GM/dL (11.7-16.9); LYMPH % 19.6 % (8-40); MCH 30.3 pg (25.7-33.7); MCHC 33.9 g/dl (32.0-35.9); MEAN CELL VOLUME 89.5 fl (80-96); MEAN PLT VOLUME 7.4 fl (7.5-11.1); MONO % 9.2 % (3.8-10.2); NEUT % 68.8 % (42.8-82.8); PLATELET COUNT 316 10^3/uL (134-434); RDW 17.3 % (11.9-15.9); WHITE BLOOD COUNT 7.5 K/mm3 (4.0-10.0)
[2022-12-28 08:50] LABS: POTASSIUM 3.7 mmol/L (3.5-5.1)
[2022-12-28 08:57] LABS: BLOOD UREA NITROGEN 18.4 mg/dL (7-18); CALCIUM 9.2 mg/dL (8.5-10.1); MAGNESIUM 1.8 mg/dL (1.8-2.4)
[2022-12-28 09:00] LABS: PHOSPHOROUS 3.4 mg/dL (2.5-4.9)
[2022-12-28 09:01] LABS: BILIRUBIN,TOTAL 0.7 mg/dL (0.2-1); TOT PROT 7.1 g/dl (6.4-8.2)
[2022-12-28] MEDS: ASPIRIN COATED 81 MG TABLET.EC PO SCH (10:45)
[2022-12-28] MEDS: POLYETHYLENE GLYCOL (HEALTHYLAX) 3350 17 GM PACKET PO SCH (10:45)
[2022-12-28] MEDS: MULTIVITAMINS (DAILY MVI) TABLET (FP) PO SCH (10:45)
[2022-12-28] MEDS: ALLOPURINOL 300 MG TABLET (FP) PO SCH (10:45)
[2022-12-28] MEDS: APIXABAN 5 MG TABLET PO SCH ×2 (10:45→21:58)
[2022-12-28] MEDS: PREGABALIN 75 MG CAPSULE PO SCH ×4 (10:45→21:59)
[2022-12-28] MEDS: NIFEdipine E.R. 30 MG TABLET PO SCH (10:46)
[2022-12-28] MEDS: ENALAPRIL MALEATE 5 MG TABLET PO SCH (10:46)
[2022-12-28] MEDS: metoPROLOL SUCCINATE 25 MG TAB.SR.24H (FP) PO SCH (10:46)
[2022-12-28] MEDS: CYANOCOBALAMIN 1,000 MCG TABLET (FP) PO SCH (10:46)
[2022-12-28] MEDS: CHOLECALCIFEROL (VIT D3) 1,000 UNIT (25 MCG) TABLET PO SCH (10:46)
[2022-12-28] MEDS ORDERED: INSULIN (NOVOLOG) ASPART 100 UNITS/ML 10ML VIAL ONE ×2 (11:47→17:32)
[2022-12-28] MEDS ORDERED: MAGNESIUM SULF 50% (8.12 MEQ/2 ML-1 GM VIAL) IVPB ONE (15:26)
[2022-12-28] MEDS: KCL 10 MEQ IVPB 10 MEQ/100 ML INFUS.BAG IVPB SCH ×3 (16:30→20:40)
[2022-12-28] MEDS: SENNOSIDES 8.6MG TABLET (FP) PO SCH (21:59)
[2022-12-28] MEDS: MELATONIN 1 MG TABLET PO SCH (21:59)
[2022-12-28] MEDS: ATORVASTATIN CA 40 MG TABLET (FP) PO SCH (21:59)
[2022-12-29] MEDS: FUROSEMIDE 40 MG/4 ML INJECTABLE VIAL IVPUSH SCH ×2 (06:18→13:50)
[2022-12-29] MEDS: DOCUSATE SODIUM 100 MG CAPSULE (FP) PO SCH ×2 (06:18→13:51)
[2022-12-29] MEDS: PANTOPRAZOLE 40 MG TABLET PO SCH (06:19)
[2022-12-29] MEDS: INSULIN SLIDING SCALE (NOVOLOG) 1 VIAL SQ SCH ×2 (06:19→11:43)
[2022-12-29 07:45] LABS: HEMATOCRIT 35.8 % (35.4-49); HEMOGLOBIN 12.3 GM/dL (11.7-16.9); MCH 30.8 pg (25.7-33.7); MCHC 34.5 g/dl (32.0-35.9); MEAN CELL VOLUME 89.3 fl (80-96); MEAN PLT VOLUME 7.6 fl (7.5-11.1); PLATELET COUNT 305 10^3/uL (134-434); RBC 4.01 M/mm3 (4.00-5.60); RDW 16.6 % (11.9-15.9); WHITE BLOOD COUNT 7.5 K/mm3 (4.0-10.0)
[2022-12-29 08:10] LABS: POTASSIUM 4.3 mmol/L (3.5-5.1)
[2022-12-29 08:11] LABS: CALCIUM 8.8 mg/dL (8.5-10.1)
[2022-12-29 08:12] LABS: BLOOD UREA NITROGEN 17.4 mg/dL (7-18); MAGNESIUM 2.1 mg/dL (1.8-2.4)
[2022-12-29 08:16] LABS: BILIRUBIN,TOTAL 0.9 mg/dL (0.2-1)
[2022-12-29 08:58] VITALS: BP 116/65; PULSE 79; RESP 18; TEMP 98.1
[2022-12-29] MEDS: POLYETHYLENE GLYCOL (HEALTHYLAX) 3350 17 GM PACKET PO SCH (10:22)
[2022-12-29] MEDS: NIFEdipine E.R. 30 MG TABLET PO SCH (10:23)
[2022-12-29] MEDS: metoPROLOL SUCCINATE 25 MG TAB.SR.24H (FP) PO SCH (10:23)
[2022-12-29] MEDS: ENALAPRIL MALEATE 5 MG TABLET PO SCH (10:23)
[2022-12-29] MEDS: MULTIVITAMINS (DAILY MVI) TABLET (FP) PO SCH (10:23)
[2022-12-29] MEDS: CHOLECALCIFEROL (VIT D3) 1,000 UNIT (25 MCG) TABLET PO SCH (10:23)
[2022-12-29] MEDS: PREGABALIN 75 MG CAPSULE PO SCH ×2 (10:23→13:50)
[2022-12-29] MEDS: APIXABAN 5 MG TABLET PO SCH (10:23)
[2022-12-29] MEDS: CYANOCOBALAMIN 1,000 MCG TABLET (FP) PO SCH (10:23)
[2022-12-29] MEDS: ALLOPURINOL 300 MG TABLET (FP) PO SCH (10:23)
[2022-12-29] MEDS: ASPIRIN COATED 81 MG TABLET.EC PO SCH (10:23)
[2022-12-29] MEDS ORDERED: INSULIN (NOVOLOG) ASPART 100 UNITS/ML 10ML VIAL ONE (11:21)
== END 2022-12-29 14:30 | DRG 175 ==
LOC: JER 10:24 → JERBED 16:02 → J4W 19:41
PROVIDERS: ADMIT Internal Medicine; ATTEND Internal Medicine
DX: I26.99 Other pulmonary embolism without acute cor pulmonale (principal); I50.41 Acute combined systolic (congestive) and diastolic (congestive) heart failure; I47.29 Other ventricular tachycardia; I11.0 Hypertensive heart disease with heart failure; E78.5 Hyperlipidemia, unspecified; M48.00 Spinal stenosis, site unspecified; I25.119 Atherosclerotic heart disease of native coronary artery with unspecified angina pectoris; E11.42 Type 2 diabetes mellitus with diabetic polyneuropathy; I27.20 Pulmonary hypertension, unspecified; M10.9 Gout, unspecified; D64.9 Anemia, unspecified; Z85.46 Personal history of malignant neoplasm of prostate; Z86.718 Personal history of other venous thrombosis and embolism; Z86.73 Personal history of transient ischemic attack (TIA), and cerebral infarction without residual deficits
CPT/HCPCS: 0241U-QW; 36415; 71045-TC-FY; 71275-TC; 80053; 81003; 82728; 82962; 83540; 83550; 83735; 83880; 84100; 84466; 84484; 85025; 85027; 85045; 85379; 85610; 85730; 87086; 87186; 93005; 93010; 93306-TC; 93308; 93970; 93970-TC; 97116-GP; 97163-GP; 99285-25; C9803-CS; Q9967; U0003; U0005

== ENCOUNTER 2023-01-18 14:40 | Inpatient (IN) | payer OTHER, BC ==
[2023-01-18 17:38] LABS: BASO % 1.2 % (0-2.0); EOS % 1.6 % (0-4.5); HEMATOCRIT 35.4 % (35.4-49); HEMOGLOBIN 11.6 GM/dL (11.7-16.9); MCH 29.2 pg (25.7-33.7); MCHC 32.7 g/dl (32.0-35.9); MEAN CELL VOLUME 89.2 fl (80-96); MONO % 9.8 % (3.8-10.2); NEUT % 68.4 % (42.8-82.8); PLATELET COUNT 211 10^3/uL (134-434); RBC 3.97 M/mm3 (4.00-5.60); RDW 16.4 % (11.9-15.9); WHITE BLOOD COUNT 7.9 K/mm3 (4.0-10.0)
[2023-01-18 17:45] LABS: INR 1.56 (0.83-1.09)
[2023-01-18 17:48] LABS: ACTIVATED PTT 34.2 SECONDS (25.2-36.5)
[2023-01-18 18:03] LABS: CALCIUM 9.4 mg/dL (8.5-10.1)
[2023-01-18 18:04] LABS: ALBUMIN 3.3 g/dl (3.4-5.0); BLOOD UREA NITROGEN 22.9 mg/dL (7-18)
[2023-01-18 18:08] LABS: BILIRUBIN,TOTAL 0.5 mg/dL (0.2-1); TOT PROT 7.4 g/dl (6.4-8.2)
[2023-01-18] MEDS ORDERED: ACETAMINOPHEN 325 MG TABLET (FP) PO PRN (21:56)
[2023-01-18] MEDS ORDERED: BISACODYL 10 MG SUPP.RECT RC PRN (22:28)
[2023-01-18] MEDS ORDERED: ACETAMINOPHEN 500 MG TABLET (FP) PO PRN (22:28)
[2023-01-18] MEDS ORDERED: INSULIN (NOVOLOG) ASPART 100 UNITS/ML 10ML VIAL ONE (22:29)
[2023-01-18] MEDS ORDERED: CYCLOBENZAPRINE HCL 5 MG TABLET PO PRN (22:30)
[2023-01-18] MEDS: INSULIN SLIDING SCALE (NOVOLOG) 1 VIAL SQ SCH (22:32)
[2023-01-19 01:20] VITALS: BMI 22.0
[2023-01-19] MEDS: PANTOPRAZOLE 40 MG TABLET PO SCH (06:21)
[2023-01-19] MEDS: DOCUSATE SODIUM 100 MG CAPSULE (FP) PO SCH ×3 (06:21→22:18)
[2023-01-19] MEDS: INSULIN SLIDING SCALE (NOVOLOG) 1 VIAL SQ SCH ×4 (06:22→23:17)
[2023-01-19 08:19] LABS: BASO % 0.9 % (0-2.0); EOS % 2.1 % (0-4.5); HEMATOCRIT 31.5 % (35.4-49); HEMOGLOBIN 10.8 GM/dL (11.7-16.9); LYMPH % 22.4 % (8-40); MCH 30.2 pg (25.7-33.7); MCHC 34.2 g/dl (32.0-35.9); MEAN CELL VOLUME 88.5 fl (80-96); MEAN PLT VOLUME 8.4 fl (7.5-11.1); MONO % 11.8 % (3.8-10.2); NEUT % 62.8 % (42.8-82.8); PLATELET COUNT 186 10^3/uL (134-434); RBC 3.56 M/mm3 (4.00-5.60); RDW 16.3 % (11.9-15.9); WHITE BLOOD COUNT 6.6 K/mm3 (4.0-10.0)
[2023-01-19 08:43] LABS: CALCIUM 8.9 mg/dL (8.5-10.1)
[2023-01-19 08:44] LABS: ALBUMIN 2.9 g/dl (3.4-5.0); BLOOD UREA NITROGEN 21.5 mg/dL (7-18); MAGNESIUM 1.9 mg/dL (1.8-2.4)
[2023-01-19 08:48] LABS: BILIRUBIN,TOTAL 0.8 mg/dL (0.2-1); TOT PROT 6.4 g/dl (6.4-8.2)
[2023-01-19] MEDS: metoPROLOL SUCCINATE 25 MG TAB.SR.24H (FP) PO SCH (09:49)
[2023-01-19] MEDS: CYANOCOBALAMIN 1,000 MCG TABLET (FP) PO SCH (09:49)
[2023-01-19] MEDS: FUROSEMIDE 40 MG TABLET (FP) PO SCH (09:49)
[2023-01-19] MEDS: PREGABALIN 75 MG CAPSULE PO SCH ×3 (09:49→22:17)
[2023-01-19] MEDS: NIFEdipine E.R. 30 MG TABLET PO SCH (09:49)
[2023-01-19] MEDS: FERROUS SO4 325 MG TABLET (FP) PO SCH (09:49)
[2023-01-19] MEDS: SENNOSIDES 8.6MG TABLET (FP) PO SCH ×2 (09:49→22:17)
[2023-01-19] MEDS: ALLOPURINOL 300 MG TABLET (FP) PO SCH (09:49)
[2023-01-19] MEDS: POLYETHYLENE GLYCOL (HEALTHYLAX) 3350 17 GM PACKET PO SCH (09:50)
[2023-01-19] MEDS ORDERED: ENALAPRIL MALEATE 5 MG TABLET PO SCH (10:00)
[2023-01-19] MEDS ORDERED: APIXABAN 5 MG TABLET PO SCH ×2 (10:00)
[2023-01-19 12:15] LABS: N-TERMINAL BNP 2270.1 pg/ml (5-450)
[2023-01-19] MEDS ORDERED: DEXTROSE 50%-WATER 25 GM/50 ML DISP.SYRIN IVPUSH PRN (16:15)
[2023-01-19] MEDS: ACETAMINOPHEN 325 MG TABLET (FP) PO SCH ×2 (18:06→21:33)
[2023-01-19] MEDS: LIDOCAINE 5% TOPICAL PATCH TP SCH (18:08)
[2023-01-19] MEDS ORDERED: PATIENT'S OWN MEDICATION (NON-FORMULARY) (Lidocaine [Aspercreme Lidocaine] 1 EACH Adh..Pat TP SCH (22:00)
[2023-01-19] MEDS: ATORVASTATIN CA 40 MG TABLET (FP) PO SCH (22:18)
[2023-01-19] MEDS: MELATONIN 1 MG TABLET PO SCH (22:18)
[2023-01-19] MEDS: LIDOCAINE PATCH REMOVAL MC SCH (23:16)
[2023-01-20] MEDS: ACETAMINOPHEN 325 MG TABLET (FP) PO SCH ×6 (04:29→21:31)
[2023-01-20] MEDS: PANTOPRAZOLE 40 MG TABLET PO SCH (06:51)
[2023-01-20] MEDS: DOCUSATE SODIUM 100 MG CAPSULE (FP) PO SCH ×3 (06:51→21:30)
[2023-01-20] MEDS: INSULIN SLIDING SCALE (NOVOLOG) 1 VIAL SQ SCH ×4 (06:52→23:15)
[2023-01-20] MEDS ORDERED: metoPROLOL SUCCINATE 25 MG TAB.SR.24H (FP) PO ONE (07:13)
[2023-01-20 07:50] LABS: BASO % 0.7 % (0-2.0); HEMATOCRIT 32.7 % (35.4-49); HEMOGLOBIN 10.8 GM/dL (11.7-16.9); LYMPH % 25.6 % (8-40); MCH 29.5 pg (25.7-33.7); MCHC 33.1 g/dl (32.0-35.9); MEAN CELL VOLUME 89.3 fl (80-96); MEAN PLT VOLUME 8.7 fl (7.5-11.1); MONO % 11.1 % (3.8-10.2); NEUT % 60.6 % (42.8-82.8); PLATELET COUNT 197 10^3/uL (134-434); RBC 3.66 M/mm3 (4.00-5.60); RDW 16.6 % (11.9-15.9); WHITE BLOOD COUNT 6.5 K/mm3 (4.0-10.0)
[2023-01-20 07:57] LABS: INR 1.46 (0.83-1.09); PROTHROMBIN TIME (PATIENT) 16.9 SEC (9.7-13.0)
[2023-01-20 08:11] LABS: POTASSIUM 3.7 mmol/L (3.5-5.1)
[2023-01-20 08:19] LABS: ALBUMIN 2.7 g/dl (3.4-5.0); CALCIUM 8.7 mg/dL (8.5-10.1)
[2023-01-20 08:20] LABS: BLOOD UREA NITROGEN 22.2 mg/dL (7-18); MAGNESIUM 1.8 mg/dL (1.8-2.4)
[2023-01-20 08:22] LABS: CREATININE 1.2 mg/dL (0.55-1.3); PHOSPHOROUS 3.3 mg/dL (2.5-4.9)
[2023-01-20 08:24] LABS: BILIRUBIN,TOTAL 0.5 mg/dL (0.2-1); TOT PROT 6.2 g/dl (6.4-8.2)
[2023-01-20] MEDS: POLYETHYLENE GLYCOL (HEALTHYLAX) 3350 17 GM PACKET PO SCH (09:34)
[2023-01-20] MEDS: ALLOPURINOL 300 MG TABLET (FP) PO SCH (10:13)
[2023-01-20] MEDS: PREGABALIN 75 MG CAPSULE PO SCH ×4 (10:13→21:31)
[2023-01-20] MEDS: CYANOCOBALAMIN 1,000 MCG TABLET (FP) PO SCH (10:13)
[2023-01-20] MEDS: FERROUS SO4 325 MG TABLET (FP) PO SCH (10:13)
[2023-01-20] MEDS: LIDOCAINE 5% TOPICAL PATCH TP SCH (10:14)
[2023-01-20] MEDS: NIFEdipine E.R. 30 MG TABLET PO SCH (10:14)
[2023-01-20] MEDS: metoPROLOL SUCCINATE 25 MG TAB.SR.24H (FP) PO SCH (10:14)
[2023-01-20] MEDS: FUROSEMIDE 40 MG TABLET (FP) PO SCH (10:14)
[2023-01-20] MEDS: SENNOSIDES 8.6MG TABLET (FP) PO SCH ×2 (10:14→21:31)
[2023-01-20] MEDS ORDERED: SODIUM CHLORIDE 250 ML IV STA (13:56)
[2023-01-20] MEDS ORDERED: ENALAPRIL MALEATE 5 MG TABLET PO SCH (13:57)
[2023-01-20] MEDS ORDERED: NIFEdipine E.R. 30 MG TABLET PO SCH (13:58)
[2023-01-20] MEDS ORDERED: metoPROLOL SUCCINATE 25 MG TAB.SR.24H (FP) PO SCH (13:58)
[2023-01-20] MEDS: MELATONIN 1 MG TABLET PO SCH (21:31)
[2023-01-20] MEDS: LIDOCAINE PATCH REMOVAL MC SCH (21:32)
[2023-01-20] MEDS: ATORVASTATIN CA 40 MG TABLET (FP) PO SCH (21:32)
[2023-01-21] MEDS: ACETAMINOPHEN 325 MG TABLET (FP) PO SCH ×6 (00:39→21:48)
[2023-01-21] MEDS: DOCUSATE SODIUM 100 MG CAPSULE (FP) PO SCH ×3 (06:08→21:48)
[2023-01-21] MEDS: PANTOPRAZOLE 40 MG TABLET PO SCH (06:08)
[2023-01-21] MEDS: INSULIN SLIDING SCALE (NOVOLOG) 1 VIAL SQ SCH ×4 (06:25→22:01)
[2023-01-21] MEDS ORDERED: LACTATED RINGERS SOLUTION 1,000 ML IV SCH ×2 (09:30→11:30)
[2023-01-21] MEDS ORDERED: BUPIVACAINE HCL/PF 0.5% (5MG/ML) 10 ML VIAL ONE (09:35)
[2023-01-21] MEDS ORDERED: MIDAZOLAM HCL 2 MG/2 ML SINGLE DOSE VIAL ONE (09:36)
[2023-01-21] MEDS ORDERED: PROPOFOL 40 ML ONE (10:13)
[2023-01-21] MEDS ORDERED: SUCCINYLCHOLINE CHLORIDE 200 MG/10 ML SYRINGE ONE (10:13)
[2023-01-21] MEDS ORDERED: CLINDAMYCIN 600 MG PREMIX BAG IVPB ONE (10:39)
[2023-01-21] MEDS ORDERED: ONDANSETRON 4 MG/2 ML VIAL ONE (11:08)
[2023-01-21] MEDS ORDERED: ONDANSETRON 4 MG/2 ML VIAL IVPUSH PRN (11:29)
[2023-01-21] MEDS ORDERED: CYCLOBENZAPRINE HCL 5 MG TABLET PO PRN (11:46)
[2023-01-21] MEDS ORDERED: DEXTROSE 50%-WATER 25 GM/50 ML DISP.SYRIN IVPUSH PRN (11:46)
[2023-01-21] MEDS ORDERED: BISACODYL 10 MG SUPP.RECT RC PRN (11:46)
[2023-01-21] MEDS: LACTATED RINGERS SOLUTION 1,000 ML IV SCH (14:10)
[2023-01-21] MEDS: PREGABALIN 75 MG CAPSULE PO SCH ×4 (15:34→21:48)
[2023-01-21] MEDS ORDERED: CEFAZOLIN 2 GM in DEXTROSE 5%-WATER - 50 ML IVPB SCH (16:00)
[2023-01-21 16:36] LABS: BASO % 0.3 % (0-2.0); EOS % 0.9 % (0-4.5); HEMATOCRIT 37.7 % (35.4-49); HEMOGLOBIN 12.1 GM/dL (11.7-16.9); LYMPH % 12.3 % (8-40); MCH 29.3 pg (25.7-33.7); MCHC 32.2 g/dl (32.0-35.9); MEAN PLT VOLUME 8.8 fl (7.5-11.1); MONO % 2.7 % (3.8-10.2); NEUT % 83.8 % (42.8-82.8); PLATELET COUNT 211 10^3/uL (134-434); RBC 4.14 M/mm3 (4.00-5.60); RDW 16.9 % (11.9-15.9); WHITE BLOOD COUNT 12.6 K/mm3 (4.0-10.0)
[2023-01-21] MEDS: FERROUS SO4 325 MG TABLET (FP) PO SCH (16:37)
[2023-01-21] MEDS: POLYETHYLENE GLYCOL (HEALTHYLAX) 3350 17 GM PACKET PO SCH (16:37)
[2023-01-21] MEDS: FUROSEMIDE 40 MG TABLET (FP) PO SCH (16:37)
[2023-01-21] MEDS: LIDOCAINE 5% TOPICAL PATCH TP SCH (16:38)
[2023-01-21] MEDS: CYANOCOBALAMIN 1,000 MCG TABLET (FP) PO SCH (16:38)
[2023-01-21] MEDS: SENNOSIDES 8.6MG TABLET (FP) PO SCH ×2 (16:38→21:48)
[2023-01-21] MEDS: ALLOPURINOL 300 MG TABLET (FP) PO SCH (16:39)
[2023-01-21 16:54] LABS: POTASSIUM 4.4 mmol/L (3.5-5.1)
[2023-01-21 16:56] LABS: CALCIUM 9.7 mg/dL (8.5-10.1)
[2023-01-21 16:57] LABS: ALBUMIN 3.2 g/dl (3.4-5.0); BLOOD UREA NITROGEN 26.4 mg/dL (7-18); INR 1.29 (0.83-1.09); PROTHROMBIN TIME (PATIENT) 14.9 SEC (9.7-13.0)
[2023-01-21 16:59] LABS: CREATININE 1.1 mg/dL (0.55-1.3); PHOSPHOROUS 3.6 mg/dL (2.5-4.9)
[2023-01-21 17:01] LABS: BILIRUBIN,TOTAL 0.6 mg/dL (0.2-1); TOT PROT 7.4 g/dl (6.4-8.2)
[2023-01-21] MEDS: MELATONIN 1 MG TABLET PO SCH (21:48)
[2023-01-21] MEDS: ATORVASTATIN CA 40 MG TABLET (FP) PO SCH (21:48)
[2023-01-21] MEDS: LIDOCAINE PATCH REMOVAL MC SCH (21:50)
[2023-01-21] MEDS ORDERED: LIDOCAINE PATCH REMOVAL MC SCH (22:00)
[2023-01-21] MEDS ORDERED: CLINDAMYCIN 600MG PREMIX IVPB 600 MG/50 ML BAG IVPB ONE (23:00)
[2023-01-22] MEDS: ACETAMINOPHEN 325 MG TABLET (FP) PO SCH ×6 (01:57→22:02)
[2023-01-22] MEDS: DOCUSATE SODIUM 100 MG CAPSULE (FP) PO SCH ×3 (06:24→22:06)
[2023-01-22] MEDS: PANTOPRAZOLE 40 MG TABLET PO SCH (06:24)
[2023-01-22] MEDS: INSULIN SLIDING SCALE (NOVOLOG) 1 VIAL SQ SCH ×4 (06:38→22:18)
[2023-01-22] MEDS ORDERED: oxyCODONE HCL 5 MG TABLET PO PRN (08:34)
[2023-01-22] MEDS: CYANOCOBALAMIN 1,000 MCG TABLET (FP) PO SCH (09:20)
[2023-01-22] MEDS: metoPROLOL SUCCINATE 25 MG TAB.SR.24H (FP) PO SCH (09:20)
[2023-01-22] MEDS: PREGABALIN 75 MG CAPSULE PO SCH ×4 (09:20→22:01)
[2023-01-22] MEDS: FERROUS SO4 325 MG TABLET (FP) PO SCH (09:20)
[2023-01-22] MEDS: FUROSEMIDE 40 MG TABLET (FP) PO SCH (09:20)
[2023-01-22] MEDS: SENNOSIDES 8.6MG TABLET (FP) PO SCH ×2 (09:21→22:00)
[2023-01-22] MEDS: POLYETHYLENE GLYCOL (HEALTHYLAX) 3350 17 GM PACKET PO SCH (09:21)
[2023-01-22] MEDS: ALLOPURINOL 300 MG TABLET (FP) PO SCH (09:21)
[2023-01-22] MEDS: NIFEdipine E.R. 30 MG TABLET PO SCH (09:21)
[2023-01-22] MEDS: LIDOCAINE 5% TOPICAL PATCH TP SCH ×2 (09:21→09:23)
[2023-01-22] MEDS: APIXABAN 5 MG TABLET PO SCH ×2 (09:21→21:59)
[2023-01-22 09:33] LABS: HEMATOCRIT 31.8 % (35.4-49); HEMOGLOBIN 10.4 GM/dL (11.7-16.9); MCH 29.1 pg (25.7-33.7); MCHC 32.6 g/dl (32.0-35.9); MEAN CELL VOLUME 89.2 fl (80-96); MEAN PLT VOLUME 8.7 fl (7.5-11.1); PLATELET COUNT 196 10^3/uL (134-434); RBC 3.56 M/mm3 (4.00-5.60); RDW 16.5 % (11.9-15.9); WHITE BLOOD COUNT 12.7 K/mm3 (4.0-10.0)
[2023-01-22 10:00] LABS: POTASSIUM 4.3 mmol/L (3.5-5.1)
[2023-01-22] MEDS ORDERED: ENALAPRIL MALEATE 5 MG TABLET PO SCH (10:00)
[2023-01-22 10:04] LABS: CALCIUM 8.9 mg/dL (8.5-10.1)
[2023-01-22 10:05] LABS: BLOOD UREA NITROGEN 26.2 mg/dL (7-18)
[2023-01-22 10:08] LABS: CREATININE 1.1 mg/dL (0.55-1.3)
[2023-01-22 12:33] LABS: ALBUMIN 2.8 g/dl (3.4-5.0); MAGNESIUM 1.8 mg/dL (1.8-2.4)
[2023-01-22 12:35] LABS: PHOSPHOROUS 3.3 mg/dL (2.5-4.9)
[2023-01-22 12:37] LABS: TOT PROT 6.2 g/dl (6.4-8.2)
[2023-01-22 12:38] LABS: BILIRUBIN,TOTAL 0.6 mg/dL (0.2-1)
[2023-01-22] MEDS: LACTATED RINGERS SOLUTION 1,000 ML IV SCH (16:04)
[2023-01-22] MEDS: MELATONIN 1 MG TABLET PO SCH (22:01)
[2023-01-22] MEDS: ATORVASTATIN CA 40 MG TABLET (FP) PO SCH (22:02)
[2023-01-22] MEDS: LIDOCAINE PATCH REMOVAL MC SCH (22:22)
[2023-01-23] MEDS: ACETAMINOPHEN 325 MG TABLET (FP) PO SCH ×6 (02:56→22:44)
[2023-01-23] MEDS: DOCUSATE SODIUM 100 MG CAPSULE (FP) PO SCH ×3 (06:27→22:45)
[2023-01-23] MEDS: PANTOPRAZOLE 40 MG TABLET PO SCH (06:37)
[2023-01-23 07:33] LABS: HEMATOCRIT 29.6 % (35.4-49); MCH 30.1 pg (25.7-33.7); MCHC 33.6 g/dl (32.0-35.9); MEAN CELL VOLUME 89.5 fl (80-96); MEAN PLT VOLUME 8.6 fl (7.5-11.1); PLATELET COUNT 177 10^3/uL (134-434); RBC 3.31 M/mm3 (4.00-5.60); RDW 16.6 % (11.9-15.9); WHITE BLOOD COUNT 9.7 K/mm3 (4.0-10.0)
[2023-01-23] MEDS: INSULIN SLIDING SCALE (NOVOLOG) 1 VIAL SQ SCH ×4 (08:44→23:00)
[2023-01-23] MEDS: PREGABALIN 75 MG CAPSULE PO SCH ×4 (11:18→22:45)
[2023-01-23] MEDS: SENNOSIDES 8.6MG TABLET (FP) PO SCH ×2 (11:18→22:45)
[2023-01-23] MEDS: FERROUS SO4 325 MG TABLET (FP) PO SCH (11:18)
[2023-01-23] MEDS: POLYETHYLENE GLYCOL (HEALTHYLAX) 3350 17 GM PACKET PO SCH (11:18)
[2023-01-23] MEDS: FUROSEMIDE 40 MG TABLET (FP) PO SCH (11:18)
[2023-01-23] MEDS: ALLOPURINOL 300 MG TABLET (FP) PO SCH (11:18)
[2023-01-23] MEDS: APIXABAN 5 MG TABLET PO SCH ×2 (11:18→22:45)
[2023-01-23] MEDS: NIFEdipine E.R. 30 MG TABLET PO SCH (11:18)
[2023-01-23] MEDS: metoPROLOL SUCCINATE 25 MG TAB.SR.24H (FP) PO SCH (11:19)
[2023-01-23] MEDS: CYANOCOBALAMIN 1,000 MCG TABLET (FP) PO SCH (11:19)
[2023-01-23] MEDS: LIDOCAINE 5% TOPICAL PATCH TP SCH (11:19)
[2023-01-23] MEDS: LIDOCAINE PATCH REMOVAL MC SCH (22:00)
[2023-01-23] MEDS: MELATONIN 1 MG TABLET PO SCH (22:00)
[2023-01-23] MEDS: ATORVASTATIN CA 40 MG TABLET (FP) PO SCH (22:45)
[2023-01-24] MEDS: ACETAMINOPHEN 325 MG TABLET (FP) PO SCH ×7 (02:16→22:04)
[2023-01-24] MEDS: DOCUSATE SODIUM 100 MG CAPSULE (FP) PO SCH ×3 (05:22→22:04)
[2023-01-24] MEDS: PANTOPRAZOLE 40 MG TABLET PO SCH (07:35)
[2023-01-24] MEDS: INSULIN SLIDING SCALE (NOVOLOG) 1 VIAL SQ SCH ×4 (07:35→22:17)
[2023-01-24] MEDS: FERROUS SO4 325 MG TABLET (FP) PO SCH (09:36)
[2023-01-24] MEDS: PREGABALIN 75 MG CAPSULE PO SCH ×4 (09:36→22:04)
[2023-01-24] MEDS: CYANOCOBALAMIN 1,000 MCG TABLET (FP) PO SCH (09:36)
[2023-01-24] MEDS: APIXABAN 5 MG TABLET PO SCH ×2 (09:36→22:08)
[2023-01-24] MEDS: LIDOCAINE 5% TOPICAL PATCH TP SCH (09:36)
[2023-01-24] MEDS: SENNOSIDES 8.6MG TABLET (FP) PO SCH ×2 (09:37→22:04)
[2023-01-24] MEDS: ALLOPURINOL 300 MG TABLET (FP) PO SCH (09:37)
[2023-01-24] MEDS: POLYETHYLENE GLYCOL (HEALTHYLAX) 3350 17 GM PACKET PO SCH (09:37)
[2023-01-24] MEDS: FUROSEMIDE 40 MG TABLET (FP) PO SCH (09:37)
[2023-01-24] MEDS: NIFEdipine E.R. 30 MG TABLET PO SCH (09:49)
[2023-01-24] MEDS: metoPROLOL SUCCINATE 25 MG TAB.SR.24H (FP) PO SCH (09:49)
[2023-01-24] MEDS: ATORVASTATIN CA 40 MG TABLET (FP) PO SCH (22:04)
[2023-01-24] MEDS: MELATONIN 1 MG TABLET PO SCH (22:04)
[2023-01-24] MEDS: LIDOCAINE PATCH REMOVAL MC SCH (22:16)
[2023-01-25] MEDS: ACETAMINOPHEN 325 MG TABLET (FP) PO SCH ×6 (02:33→21:38)
[2023-01-25] MEDS: PANTOPRAZOLE 40 MG TABLET PO SCH (06:35)
[2023-01-25] MEDS: DOCUSATE SODIUM 100 MG CAPSULE (FP) PO SCH ×3 (06:35→21:37)
[2023-01-25] MEDS: INSULIN SLIDING SCALE (NOVOLOG) 1 VIAL SQ SCH ×4 (06:56→23:06)
[2023-01-25] MEDS: CYANOCOBALAMIN 1,000 MCG TABLET (FP) PO SCH (09:22)
[2023-01-25] MEDS: APIXABAN 5 MG TABLET PO SCH ×2 (09:22→21:38)
[2023-01-25] MEDS: FUROSEMIDE 40 MG TABLET (FP) PO SCH (09:22)
[2023-01-25] MEDS: NIFEdipine E.R. 30 MG TABLET PO SCH (09:22)
[2023-01-25] MEDS: POLYETHYLENE GLYCOL (HEALTHYLAX) 3350 17 GM PACKET PO SCH (09:22)
[2023-01-25] MEDS: PREGABALIN 75 MG CAPSULE PO SCH ×4 (09:22→21:39)
[2023-01-25] MEDS: SENNOSIDES 8.6MG TABLET (FP) PO SCH ×2 (09:22→21:39)
[2023-01-25] MEDS: FERROUS SO4 325 MG TABLET (FP) PO SCH (09:22)
[2023-01-25] MEDS: metoPROLOL SUCCINATE 25 MG TAB.SR.24H (FP) PO SCH (09:22)
[2023-01-25] MEDS: ALLOPURINOL 300 MG TABLET (FP) PO SCH (09:23)
[2023-01-25] MEDS: LIDOCAINE 5% TOPICAL PATCH TP SCH (11:58)
[2023-01-25 15:44] VITALS: RESP 18
[2023-01-25] MEDS: MELATONIN 1 MG TABLET PO SCH (21:38)
[2023-01-25] MEDS: ATORVASTATIN CA 40 MG TABLET (FP) PO SCH (21:39)
[2023-01-25] MEDS: LIDOCAINE PATCH REMOVAL MC SCH (21:50)
[2023-01-26] MEDS: ACETAMINOPHEN 325 MG TABLET (FP) PO SCH ×3 (02:46→09:44)
[2023-01-26] MEDS: DOCUSATE SODIUM 100 MG CAPSULE (FP) PO SCH (06:31)
[2023-01-26] MEDS: PANTOPRAZOLE 40 MG TABLET PO SCH (06:31)
[2023-01-26] MEDS: INSULIN SLIDING SCALE (NOVOLOG) 1 VIAL SQ SCH ×2 (08:09→12:05)
[2023-01-26] MEDS: CYANOCOBALAMIN 1,000 MCG TABLET (FP) PO SCH (09:43)
[2023-01-26] MEDS: FERROUS SO4 325 MG TABLET (FP) PO SCH (09:43)
[2023-01-26] MEDS: APIXABAN 5 MG TABLET PO SCH (09:43)
[2023-01-26] MEDS: FUROSEMIDE 40 MG TABLET (FP) PO SCH (09:43)
[2023-01-26] MEDS: ALLOPURINOL 300 MG TABLET (FP) PO SCH (09:43)
[2023-01-26] MEDS: NIFEdipine E.R. 30 MG TABLET PO SCH (09:43)
[2023-01-26] MEDS: metoPROLOL SUCCINATE 25 MG TAB.SR.24H (FP) PO SCH (09:43)
[2023-01-26] MEDS: POLYETHYLENE GLYCOL (HEALTHYLAX) 3350 17 GM PACKET PO SCH (09:47)
[2023-01-26] MEDS: LIDOCAINE 5% TOPICAL PATCH TP SCH (09:47)
[2023-01-26] MEDS: PREGABALIN 75 MG CAPSULE PO SCH (09:47)
[2023-01-26] MEDS: SENNOSIDES 8.6MG TABLET (FP) PO SCH (09:47)
[2023-01-26] MEDS ORDERED: THIAMINE HCL 100 MG TABLET (FP) PO SCH (10:00)
[2023-01-26] MEDS ORDERED: FOLIC ACID 1 MG TABLET (FP) PO SCH (10:00)
[2023-01-26 11:59] VITALS: BP 118/68; PULSE 71; TEMP 98.7
== END 2023-01-26 11:20 | DRG 480 ==
LOC: JER 14:40 → JERBED 16:51 → J8W 21:28
PROVIDERS: ADMIT Internal Medicine; ATTEND Nurse Practitioner Acute Care
PROC: 0QS604Z Reposition Right Upper Femur with Internal Fixation Device, Open Approach (ICD-10-PCS; principal; 2023-01-21 10:00)
DX: S72.011A Unspecified intracapsular fracture of right femur, initial encounter for closed fracture (principal); I26.99 Other pulmonary embolism without acute cor pulmonale; U07.1 COVID-19; I50.42 Chronic combined systolic (congestive) and diastolic (congestive) heart failure; E78.5 Hyperlipidemia, unspecified; E11.42 Type 2 diabetes mellitus with diabetic polyneuropathy; M48.00 Spinal stenosis, site unspecified; I11.0 Hypertensive heart disease with heart failure; I25.119 Atherosclerotic heart disease of native coronary artery with unspecified angina pectoris; W18.39XA Other fall on same level, initial encounter; Y92.89 Other specified places as the place of occurrence of the external cause; Y99.8 Other external cause status; Z86.73 Personal history of transient ischemic attack (TIA), and cerebral infarction without residual deficits; Z88.0 Allergy status to penicillin; Z85.46 Personal history of malignant neoplasm of prostate
CPT/HCPCS: 0241U-QW; 36415; 73552-TC-RT-FY; 76000-TC-FY; 80048; 80053; 82962; 83735; 83880; 84100; 85025; 85027; 85610; 85730; 86850; 86900; 86901; 87635; 93005; 93010; 94010; 94760; 97116-GP; 97161-GP; 99285-25; C1713

== ENCOUNTER 2023-11-29 21:27 | Inpatient (IN) | payer OTHER, BC ==
[2023-11-30 00:20] LABS: BASO % 0.3 % (0-2.0); EOS % 0.6 % (0-4.5); HEMATOCRIT 35.3 % (35.4-49); HEMOGLOBIN 11.9 GM/dL (11.7-16.9); LYMPH % 13.1 % (8-40); MCH 30.1 pg (25.7-33.7); MCHC 33.8 g/dl (32.0-35.9); MEAN PLT VOLUME 8.6 fl (7.5-11.1); PLATELET COUNT 185 10^3/uL (134-434); RBC 3.97 M/mm3 (4.00-5.60); WHITE BLOOD COUNT 8.3 K/mm3 (4.0-10.0)
[2023-11-30 00:26] LABS: INR 1.44 (0.83-1.09); PROTHROMBIN TIME (PATIENT) 16.6 SEC (9.7-13.0)
[2023-11-30 00:29] LABS: ACTIVATED PTT 30.6 SECONDS (25.2-36.5)
[2023-11-30 00:50] LABS: POTASSIUM 3.9 mmol/L (3.5-5.1)
[2023-11-30 00:53] LABS: ALBUMIN 3.3 g/dl (3.4-5.0); BLOOD UREA NITROGEN 21.4 mg/dL (7-18); MAGNESIUM 2.1 mg/dL (1.8-2.4)
[2023-11-30 00:56] LABS: CREATININE 1.1 mg/dL (0.55-1.3); PHOSPHOROUS 2.2 mg/dL (2.5-4.9)
[2023-11-30 00:57] LABS: BILIRUBIN,TOTAL 0.6 mg/dL (0.2-1); TOT PROT 7.1 g/dl (6.4-8.2)
[2023-11-30] MEDS ORDERED: ASPIRIN 81 MG CHEWABLE TABLETS ONE (04:25)
[2023-11-30] MEDS: ASPIRIN 81 MG CHEWABLE TABLETS PO ONE (04:30)
[2023-11-30] MEDS ORDERED: LIDOCAINE 4% PATCH TP ONE (05:02)
[2023-11-30] MEDS ORDERED: guaiFENesin/D-METHORPHAN HB 10 ML UNIT-DOSE CUPS ONE (05:03)
[2023-11-30] MEDS: guaiFENesin 200 MG/10 ML 10 ML UNIT-DOSE CUPS PO ONE (05:07)
[2023-11-30] MEDS: LIDOCAINE 5% TOPICAL PATCH TP ONE (05:07)
[2023-11-30 06:17] LABS: BASO % 0.4 % (0-2.0); EOS % 1.1 % (0-4.5); HEMATOCRIT 33.2 % (35.4-49); HEMOGLOBIN 11.1 GM/dL (11.7-16.9); LYMPH % 17.5 % (8-40); MCH 30.2 pg (25.7-33.7); MCHC 33.4 g/dl (32.0-35.9); MEAN CELL VOLUME 90.2 fl (80-96); MEAN PLT VOLUME 8.6 fl (7.5-11.1); MONO % 11.3 % (3.8-10.2); NEUT % 69.7 % (42.8-82.8); PLATELET COUNT 166 10^3/uL (134-434); RBC 3.68 M/mm3 (4.00-5.60); RDW 14.9 % (11.9-15.9); WHITE BLOOD COUNT 7.4 K/mm3 (4.0-10.0)
[2023-11-30 06:45] LABS: POTASSIUM 4.2 mmol/L (3.5-5.1)
[2023-11-30 06:47] LABS: CALCIUM 8.4 mg/dL (8.5-10.1)
[2023-11-30 06:48] LABS: BLOOD UREA NITROGEN 20.2 mg/dL (7-18)
[2023-11-30 06:51] LABS: CREATININE 1.1 mg/dL (0.55-1.3); PHOSPHOROUS 2.3 mg/dL (2.5-4.9)
[2023-11-30 06:52] LABS: BILIRUBIN,TOTAL 0.5 mg/dL (0.2-1); TOT PROT 6.3 g/dl (6.4-8.2)
[2023-11-30] MEDS ORDERED: PREGABALIN 50 MG CAPSULE ONE ×2 (09:49→16:31)
[2023-11-30] MEDS ORDERED: PREGABALIN 25 MG CAPSULE ONE ×2 (09:50→16:31)
[2023-11-30] MEDS ORDERED: PANTOPRAZOLE 40 MG TABLET PO ONE (09:50)
[2023-11-30] MEDS ORDERED: FUROSEMIDE 40 MG TABLET (FP) ONE (09:50)
[2023-11-30] MEDS ORDERED: NIFEdipine E.R. 30 MG TABLET PO ONE (09:50)
[2023-11-30] MEDS ORDERED: FERROUS SO4 325 MG TABLET (FP) ONE (09:50)
[2023-11-30] MEDS: NIFEdipine E.R. 30 MG TABLET PO SCH (09:59)
[2023-11-30] MEDS: PANTOPRAZOLE 40 MG TABLET PO SCH (09:59)
[2023-11-30] MEDS: FERROUS SO4 325 MG TABLET (FP) PO SCH (09:59)
[2023-11-30] MEDS: FUROSEMIDE 40 MG TABLET (FP) PO SCH (09:59)
[2023-11-30] MEDS: PREGABALIN 75 MG CAPSULE PO SCH ×2 (09:59→16:34)
[2023-11-30] MEDS: CYANOCOBALAMIN 1,000 MCG TABLET (FP) PO SCH (09:59)
[2023-11-30] MEDS ORDERED: metoPROLOL SUCCINATE 25 MG TAB.SR.24H (FP) PO SCH (10:00)
[2023-11-30] MEDS ORDERED: NAPH,MB-DB/K PH,MBDB POWDER PACKET ONE (10:45)
[2023-11-30 10:51] LABS: N-TERMINAL BNP 3280.1 pg/ml (5-450)
[2023-11-30] MEDS: NAPH,MB-DB/K PH,MBDB POWDER PACKET PO SCH (11:10)
[2023-11-30 17:06] LABS: PH,URINE 5.5 (5.0-8.0); URINE APPEARANCE CLEAR; URINE BILIRUBIN NEGATIVE (NEGATIVE); URINE COLOR YELLOW; URINE GLUCOSE (UA) NEGATIVE (NEGATIVE); URINE KETONE NEGATIVE (NEGATIVE); URINE LEUK ESTERASE NEGATIVE (NEGATIVE); URINE NITRITE NEGATIVE (NEGATIVE); URINE PROTEIN NEGATIVE (NEGATIVE); URINE UROBILINOGEN 0.2 mg/dL (0.2-1.0)
[2023-11-30 18:18] VITALS: BMI 21.5
[2023-11-30] MEDS: ACETAMINOPHEN 325 MG TABLET (FP) PO PRN (18:53)
[2023-11-30] MEDS: ATORVASTATIN CA 40 MG TABLET (FP) PO SCH (21:40)
[2023-11-30] MEDS: LIDOCAINE PATCH REMOVAL MC SCH (21:46)
[2023-11-30] MEDS ORDERED: CYCLOBENZAPRINE HCL 5 MG TABLET PO SCH (22:00)
[2023-12-01 07:16] LABS: BASO % 0.5 % (0-2.0); EOS % 4.6 % (0-4.5); HEMATOCRIT 30.3 % (35.4-49); HEMOGLOBIN 10.1 GM/dL (11.7-16.9); LYMPH % 21.8 % (8-40); MCH 29.9 pg (25.7-33.7); MCHC 33.2 g/dl (32.0-35.9); MEAN PLT VOLUME 8.7 fl (7.5-11.1); MONO % 14.7 % (3.8-10.2); NEUT % 58.4 % (42.8-82.8); PLATELET COUNT 161 10^3/uL (134-434); RBC 3.37 M/mm3 (4.00-5.60); WHITE BLOOD COUNT 7.5 K/mm3 (4.0-10.0)
[2023-12-01 07:17] LABS: POTASSIUM 3.9 mmol/L (3.5-5.1)
[2023-12-01 07:20] LABS: CALCIUM 8.3 mg/dL (8.5-10.1)
[2023-12-01 07:21] LABS: ALBUMIN 2.7 g/dl (3.4-5.0); BLOOD UREA NITROGEN 22.2 mg/dL (7-18); MAGNESIUM 2.1 mg/dL (1.8-2.4)
[2023-12-01 07:25] LABS: BILIRUBIN,TOTAL 0.7 mg/dL (0.2-1); TOT PROT 5.8 g/dl (6.4-8.2)
[2023-12-01 07:26] LABS: PHOSPHOROUS 3.3 mg/dL (2.5-4.9)
[2023-12-01] MEDS ORDERED: ACETAMINOPHEN 1000 MG/100 ML BAG IVPB PRN (12:39)
[2023-12-01] MEDS ORDERED: ACETAMINOPHEN 325 MG TABLET (FP) PO PRN (12:40)
[2023-12-01] MEDS: guaiFENesin 600 MG TABLET.ER (FP) PO SCH (13:47)
[2023-12-01] MEDS: PREGABALIN 75 MG CAPSULE PO SCH (21:45)
[2023-12-01] MEDS: MELATONIN 5 MG TABLETS PO PRN (22:05)
[2023-12-02 06:31] VITALS: RESP 18
[2023-12-02 08:16] LABS: BASO % 0.4 % (0-2.0); HEMATOCRIT 30.1 % (35.4-49); HEMOGLOBIN 10.2 GM/dL (11.7-16.9); LYMPH % 19.6 % (8-40); MCH 30.1 pg (25.7-33.7); MEAN CELL VOLUME 88.8 fl (80-96); MEAN PLT VOLUME 8.6 fl (7.5-11.1); PLATELET COUNT 162 10^3/uL (134-434); RBC 3.39 M/mm3 (4.00-5.60); RDW 15.3 % (11.9-15.9); WHITE BLOOD COUNT 7.7 K/mm3 (4.0-10.0)
[2023-12-02 09:01] LABS: CALCIUM 8.9 mg/dL (8.5-10.1)
[2023-12-02 09:02] LABS: ALBUMIN 2.6 g/dl (3.4-5.0); BLOOD UREA NITROGEN 26.8 mg/dL (7-18)
[2023-12-02 09:05] LABS: CREATININE 0.9 mg/dL (0.55-1.3); MAGNESIUM 2.3 mg/dL (1.8-2.4); TOT PROT 5.9 g/dl (6.4-8.2)
[2023-12-02 09:06] LABS: BILIRUBIN,TOTAL 0.6 mg/dL (0.2-1)
[2023-12-02] MEDS: DICLOFENAC SODIUM 25 MG TABLET.DR PO ONE (12:15)
[2023-12-02 13:59] VITALS: BP 108/68; PULSE 76; TEMP 99
== END 2023-12-02 14:53 | disposition home health service (06) | DRG 308 ==
LOC: JER 21:27 → JERBED 11-30 04:32 → OBSVTOIN 11-30 04:57 → J4W 11-30 17:01
PROVIDERS: ADMIT Internal Medicine; ATTEND Nurse Practitioner Acute Care
DX: I48.92 Unspecified atrial flutter (principal); E43 Unspecified severe protein-calorie malnutrition; S06.9X9A Unspecified intracranial injury with loss of consciousness of unspecified duration, initial encounter; I50.42 Chronic combined systolic (congestive) and diastolic (congestive) heart failure; E78.5 Hyperlipidemia, unspecified; I48.91 Unspecified atrial fibrillation; R55 Syncope and collapse; S00.83XA Contusion of other part of head, initial encounter; E11.51 Type 2 diabetes mellitus with diabetic peripheral angiopathy without gangrene; I25.10 Atherosclerotic heart disease of native coronary artery without angina pectoris; I49.5 Sick sinus syndrome; R26.81 Unsteadiness on feet; K59.00 Constipation, unspecified; M48.00 Spinal stenosis, site unspecified; Q67.0 Congenital facial asymmetry; H81.10 Benign paroxysmal vertigo, unspecified ear; I11.0 Hypertensive heart disease with heart failure; M50.30 Other cervical disc degeneration, unspecified cervical region; W06.XXXA Fall from bed, initial encounter; Y92.092 Bedroom in other non-institutional residence as the place of occurrence of the external cause; Y99.9 Unspecified external cause status; Z86.711 Personal history of pulmonary embolism; Z86.718 Personal history of other venous thrombosis and embolism; Z85.46 Personal history of malignant neoplasm of prostate; Z68.21 Body mass index [BMI] 21.0-21.9, adult; Z91.81 History of falling
CPT/HCPCS: 0241U-QW; 36415; 70450-TC; 71045-TC-FY; 71275-TC; 72125-TC; 72170-TC-FY; 80053; 81003; 82962; 83735; 83880; 84100; 84484; 85025; 85610; 85730; 87086; 93005; 93010; 93306-TC; 97116-GP; 97162-GP; 99285-25; G0378

== ENCOUNTER 2023-12-03 22:25 | Inpatient (IN) | payer OTHER, BC ==
[2023-12-03 22:53] VITALS: RESP 18; BMI 20.7
[2023-12-03 23:24] LABS: BASO % 0.5 % (0-2.0); EOS % 2.7 % (0-4.5); HEMATOCRIT 33.3 % (35.4-49); HEMOGLOBIN 10.9 GM/dL (11.7-16.9); LYMPH % 16.1 % (8-40); MCH 29.3 pg (25.7-33.7); MCHC 32.8 g/dl (32.0-35.9); MEAN CELL VOLUME 89.2 fl (80-96); MONO % 8.8 % (3.8-10.2); NEUT % 71.9 % (42.8-82.8); PLATELET COUNT 233 10^3/uL (134-434); RBC 3.73 M/mm3 (4.00-5.60); RDW 15.3 % (11.9-15.9); WHITE BLOOD COUNT 7.3 K/mm3 (4.0-10.0)
[2023-12-03 23:29] LABS: INR 1.34 (0.83-1.09); PROTHROMBIN TIME (PATIENT) 15.5 SEC (9.7-13.0)
[2023-12-03 23:31] LABS: ACTIVATED PTT 30.3 SECONDS (25.2-36.5)
[2023-12-03 23:40] LABS: CHLORIDE 103 mmol/L (98-107); SODIUM 136 mmol/L (136-145)
[2023-12-03 23:41] LABS: CALCIUM 8.7 mg/dL (8.5-10.1); CO2 28 mmol/L (21-32); GLUCOSE,RANDOM 132 mg/dL (74-106)
[2023-12-03 23:43] LABS: ALBUMIN 2.9 g/dl (3.4-5.0); BLOOD UREA NITROGEN 26.1 mg/dL (7-18)
[2023-12-03 23:45] LABS: CREATININE 1.2 mg/dL (0.55-1.3); SGPT/ALT 22 U/L (13-61)
[2023-12-03 23:46] LABS: SGOT/AST 65 U/L (15-37)
[2023-12-03 23:47] LABS: BILIRUBIN,TOTAL 0.8 mg/dL (0.2-1)
[2023-12-03 23:48] LABS: ALK PHOS 55 U/L (45-117)
[2023-12-03 23:51] LABS: ANION GAP 5 mmol/L (4-13); POTASSIUM 6.3 mmol/L (3.5-5.1)
[2023-12-04] MEDS ORDERED: DIPHTH,PERTUSS(ACELL),TET 0.5 ML DISP.SYRIN IM ONE (00:22)
[2023-12-04] MEDS: DIPHTH,PERTUSS(ACELL),TET 0.5 ML DISP.SYRIN IM ONE (00:36)
[2023-12-04] MEDS: SODIUM CHLORIDE 0.9% 500 ML INFUS.BAG IV ONE (00:38)
[2023-12-04 01:05] LABS: POTASSIUM 4.2 mmol/L (3.5-5.1)
[2023-12-04 01:06] LABS: BLOOD UREA NITROGEN 26.4 mg/dL (7-18); CALCIUM 8.3 mg/dL (8.5-10.1)
[2023-12-04 01:10] LABS: CREATININE 1.1 mg/dL (0.55-1.3)
[2023-12-04 02:43] LABS: PH,URINE 5.5 (5.0-8.0); URINE APPEARANCE CLEAR; URINE BILIRUBIN NEGATIVE (NEGATIVE); URINE COLOR YELLOW; URINE GLUCOSE (UA) NEGATIVE (NEGATIVE); URINE KETONE NEGATIVE (NEGATIVE); URINE LEUK ESTERASE NEGATIVE (NEGATIVE); URINE NITRITE NEGATIVE (NEGATIVE); URINE PROTEIN NEGATIVE (NEGATIVE)
[2023-12-04] MEDS: DOCUSATE SODIUM 100 MG CAPSULE (FP) PO SCH (06:07)
[2023-12-04] MEDS: ACETAMINOPHEN 325 MG TABLET (FP) PO PRN (10:48)
[2023-12-04] MEDS: SENNOSIDES 8.6MG TABLET (FP) PO PRN (10:48)
[2023-12-04] MEDS: APIXABAN 5 MG TABLET PO SCH (10:49)
[2023-12-04] MEDS: metoPROLOL SUCCINATE 25 MG TAB.SR.24H (FP) PO SCH (10:49)
[2023-12-04] MEDS: FUROSEMIDE 40 MG TABLET (FP) PO SCH (10:49)
[2023-12-04] MEDS: NIFEdipine E.R. 30 MG TABLET PO SCH (10:49)
[2023-12-04] MEDS: ATORVASTATIN CA 40 MG TABLET (FP) PO SCH (22:58)
[2023-12-04] MEDS: MELATONIN 1 MG TABLET PO ONE (23:27)
[2023-12-05] MEDS: MELATONIN 5 MG TABLETS PO ONE (22:13)
[2023-12-06 08:43] LABS: BASO % 0.7 % (0-2.0); EOS % 2.4 % (0-4.5); HEMATOCRIT 30.5 % (35.4-49); HEMOGLOBIN 10.3 GM/dL (11.7-16.9); LYMPH % 20.7 % (8-40); MCHC 33.7 g/dl (32.0-35.9); MEAN PLT VOLUME 8.5 fl (7.5-11.1); MONO % 10.1 % (3.8-10.2); NEUT % 66.1 % (42.8-82.8); PLATELET COUNT 252 10^3/uL (134-434); RBC 3.43 M/mm3 (4.00-5.60); RDW 14.7 % (11.9-15.9); WHITE BLOOD COUNT 7.5 K/mm3 (4.0-10.0)
[2023-12-06 09:03] LABS: ACTIVATED PTT 30.6 SECONDS (25.2-36.5); POTASSIUM 3.9 mmol/L (3.5-5.1)
[2023-12-06 09:05] LABS: INR 1.3 (0.83-1.09)
[2023-12-06 09:12] LABS: ALBUMIN 2.6 g/dl (3.4-5.0); BLOOD UREA NITROGEN 18.2 mg/dL (7-18); CALCIUM 8.8 mg/dL (8.5-10.1); MAGNESIUM 2.1 mg/dL (1.8-2.4)
[2023-12-06 09:15] LABS: CREATININE 0.8 mg/dL (0.55-1.3)
[2023-12-06 09:16] LABS: BILIRUBIN,TOTAL 0.8 mg/dL (0.2-1)
[2023-12-06] MEDS: APIXABAN 2.5 MG TABLET PO SCH (13:12)
[2023-12-06] MEDS: CYCLOBENZAPRINE HCL 5 MG TABLET PO SCH (22:13)
[2023-12-06] MEDS: MELATONIN 5 MG TABLETS PO PRN (22:13)
[2023-12-06] MEDS: PREGABALIN 75 MG CAPSULE PO SCH (22:13)
[2023-12-07] MEDS: PANTOPRAZOLE 40 MG TABLET PO SCH (09:45)
[2023-12-07] MEDS: CYANOCOBALAMIN 1,000 MCG TABLET (FP) PO SCH (09:46)
[2023-12-07] MEDS ORDERED: NIFEdipine E.R. 30 MG TABLET PO SCH (10:44)
[2023-12-07] MEDS: ENALAPRIL MALEATE 5 MG TABLET PO SCH (10:56)
[2023-12-07] MEDS: FUROSEMIDE 20 MG TABLET (FP) PO SCH (12:48)
[2023-12-08] MEDS: metoPROLOL SUCCINATE 25 MG TAB.SR.24H (FP) PO SCH (10:22)
[2023-12-08 17:35] VITALS: BP 117/59; PULSE 64; TEMP 98.6
== END 2023-12-08 18:04 | DRG 74 ==
LOC: JER 22:25 → JERBED 12-04 04:24 → J5S 12-04 06:23 → OBSVTOIN 12-06 09:31
PROVIDERS: ADMIT Student in an Organized Health Care Education/Training Program
DX: E11.42 Type 2 diabetes mellitus with diabetic polyneuropathy (principal); I48.92 Unspecified atrial flutter; I50.42 Chronic combined systolic (congestive) and diastolic (congestive) heart failure; R29.6 Repeated falls; M48.00 Spinal stenosis, site unspecified; I11.0 Hypertensive heart disease with heart failure; E78.00 Pure hypercholesterolemia, unspecified; I25.10 Atherosclerotic heart disease of native coronary artery without angina pectoris; I48.91 Unspecified atrial fibrillation; F41.9 Anxiety disorder, unspecified; J45.909 Unspecified asthma, uncomplicated; Z86.73 Personal history of transient ischemic attack (TIA), and cerebral infarction without residual deficits; Z85.46 Personal history of malignant neoplasm of prostate; Z86.711 Personal history of pulmonary embolism
CPT/HCPCS: 36415; 70450-TC; 71045-TC-FY; 72125-TC; 72170-TC-FY; 72192-TC; 73521-TC-FY; 73552-TC-RT-FY; 80048; 80053; 81003; 82550; 83036; 83735; 84100; 84443; 84484; 85025; 85610; 85730; 86850; 86900; 86901; 87086; 90715; 93005; 93010; 97116-GP; 97162-GP; 99285-25; G0378

== ENCOUNTER 2024-06-11 11:53 | Inpatient (IN) | payer OTHER, BC ==
[2024-06-11 13:52] LABS: BASO % 0.7 % (0-2.0); EOS % 1.9 % (0-4.5); HEMATOCRIT 37.1 % (35.4-49); LYMPH % 15.2 % (8-40); MCH 28.6 pg (25.7-33.7); MCHC 32.2 g/dl (32.0-35.9); MEAN CELL VOLUME 88.8 fl (80-96); MEAN PLT VOLUME 8.2 fl (7.5-11.1); MONO % 7.8 % (3.8-10.2); NEUT % 74.4 % (42.8-82.8); PLATELET COUNT 209 10^3/uL (134-434); RBC 4.18 M/mm3 (4.00-5.60); RDW 16.2 % (11.9-15.9)
[2024-06-11 13:59] LABS: INR 1.58 (0.83-1.09); PROTHROMBIN TIME (PATIENT) 17.9 SEC (9.7-13.0)
[2024-06-11 14:01] LABS: ACTIVATED PTT 30.8 SECONDS (25.2-36.5)
[2024-06-11 14:09] LABS: POTASSIUM 4.2 mmol/L (3.5-5.1)
[2024-06-11 14:10] LABS: CALCIUM 8.6 mg/dL (8.5-10.1)
[2024-06-11 14:11] LABS: ALBUMIN 3.5 g/dl (3.4-5.0); BLOOD UREA NITROGEN 30.6 mg/dL (7-18)
[2024-06-11 14:14] LABS: CREATININE 1.4 mg/dL (0.55-1.3)
[2024-06-11 14:16] LABS: BILIRUBIN,TOTAL 0.8 mg/dL (0.2-1); TOT PROT 6.7 g/dl (6.4-8.2)
[2024-06-11] MEDS ORDERED: SENNOSIDES 8.6MG TABLET (FP) PO PRN (20:11)
[2024-06-11] MEDS: PREGABALIN 75 MG CAPSULE PO SCH (22:31)
[2024-06-11] MEDS: MELATONIN 5 MG TABLETS PO PRN (22:31)
[2024-06-11] MEDS: CYCLOBENZAPRINE HCL 5 MG TABLET PO SCH (22:31)
[2024-06-11] MEDS: ATORVASTATIN CA 40 MG TABLET (FP) PO SCH (22:31)
[2024-06-11 22:48] VITALS: BMI 23.6
[2024-06-12 09:53] LABS: HEMATOCRIT 36.3 % (35.4-49); HEMOGLOBIN 12.2 GM/dL (11.7-16.9); MCH 29.4 pg (25.7-33.7); MCHC 33.7 g/dl (32.0-35.9); MEAN CELL VOLUME 87.4 fl (80-96); MEAN PLT VOLUME 8.6 fl (7.5-11.1); PLATELET COUNT 187 10^3/uL (134-434); RBC 4.16 M/mm3 (4.00-5.60); RDW 16.3 % (11.9-15.9); WHITE BLOOD COUNT 6.2 K/mm3 (4.0-10.0)
[2024-06-12 10:11] LABS: POTASSIUM 3.7 mmol/L (3.5-5.1)
[2024-06-12] MEDS: metoPROLOL SUCCINATE 25 MG TAB.SR.24H (FP) PO SCH (10:22)
[2024-06-12] MEDS: FUROSEMIDE 20 MG TABLET (FP) PO SCH (10:22)
[2024-06-12] MEDS: ENALAPRIL MALEATE 5 MG TABLET PO SCH (10:22)
[2024-06-12] MEDS: PANTOPRAZOLE 40 MG TABLET PO SCH (10:23)
[2024-06-12 10:26] LABS: BLOOD UREA NITROGEN 28.3 mg/dL (7-18)
[2024-06-12 10:27] LABS: CREATININE 1.4 mg/dL (0.55-1.3)
[2024-06-12 10:46] LABS: CALCIUM 9.5 mg/dL (8.5-10.1)
[2024-06-12] MEDS: ACETAMINOPHEN 325 MG TABLET (FP) PO PRN (16:44)
[2024-06-12 21:21] LABS: EPI CELLS 7 /uL (0-25.1); HYALINE CASTS 0 /uL (0-3.1); PH,URINE 5.5 (5.0-8.0); URINE APPEARANCE TURBID; URINE BACTERIA >9,000 /uL (0-1359); URINE BILIRUBIN NEGATIVE (NEGATIVE); URINE COLOR YELLOW; URINE GLUCOSE (UA) 3+ (NEGATIVE); URINE KETONE NEGATIVE (NEGATIVE); URINE LEUK ESTERASE 2+ (NEGATIVE); URINE NITRITE NEGATIVE (NEGATIVE); URINE PROTEIN 1+ (NEGATIVE); URINE RBC 17 /uL (0-23.9); URINE WBC 1190 /uL (0-25.8)
[2024-06-12] MEDS: DOCUSATE SODIUM 100 MG CAPSULE (FP) PO SCH (22:02)
[2024-06-13 10:47] LABS: BASO % 0.4 % (0-2.0); EOS % 0.6 % (0-4.5); HEMATOCRIT 34.3 % (35.4-49); HEMOGLOBIN 11.3 GM/dL (11.7-16.9); MCH 28.7 pg (25.7-33.7); MCHC 32.9 g/dl (32.0-35.9); MEAN PLT VOLUME 8.6 fl (7.5-11.1); MONO % 7.6 % (3.8-10.2); NEUT % 87.4 % (42.8-82.8); PLATELET COUNT 183 10^3/uL (134-434); RBC 3.94 M/mm3 (4.00-5.60); RDW 15.8 % (11.9-15.9); WHITE BLOOD COUNT 13.1 K/mm3 (4.0-10.0)
[2024-06-13 11:03] LABS: POTASSIUM 3.6 mmol/L (3.5-5.1)
[2024-06-13 11:06] LABS: BLOOD UREA NITROGEN 22.2 mg/dL (7-18); CALCIUM 8.7 mg/dL (8.5-10.1)
[2024-06-13 11:09] LABS: CREATININE 1.2 mg/dL (0.55-1.3)
[2024-06-13] MEDS: AZTREONAM 1 GM in DEXTROSE 5%-WATER - 50 ML IVPB ONE (11:46)
[2024-06-13] MEDS: SODIUM CHLORIDE 0.45% 1,000 ML IV SCH (18:30)
[2024-06-14 08:59] LABS: BASO % 0.6 % (0-2.0); EOS % 3.8 % (0-4.5); HEMOGLOBIN 10.7 GM/dL (11.7-16.9); LYMPH % 16.1 % (8-40); MCH 28.9 pg (25.7-33.7); MCHC 32.5 g/dl (32.0-35.9); MEAN CELL VOLUME 88.9 fl (80-96); MEAN PLT VOLUME 8.1 fl (7.5-11.1); MONO % 9.3 % (3.8-10.2); NEUT % 70.2 % (42.8-82.8); PLATELET COUNT 156 10^3/uL (134-434); RBC 3.71 M/mm3 (4.00-5.60); RDW 15.8 % (11.9-15.9); WHITE BLOOD COUNT 9.4 K/mm3 (4.0-10.0)
[2024-06-14 09:18] LABS: POTASSIUM 3.8 mmol/L (3.5-5.1)
[2024-06-14 09:21] LABS: CALCIUM 8.6 mg/dL (8.5-10.1)
[2024-06-14 09:22] LABS: ALBUMIN 2.8 g/dl (3.4-5.0); BLOOD UREA NITROGEN 21.1 mg/dL (7-18)
[2024-06-14 09:25] LABS: CREATININE 1.1 mg/dL (0.55-1.3)
[2024-06-14 09:26] LABS: BILIRUBIN,TOTAL 1.3 mg/dL (0.2-1); TOT PROT 5.4 g/dl (6.4-8.2)
[2024-06-14] MEDS: MAG HYDROX/AL HYDROX/SIMETH 30 ML UNIT-DOSE CUP PO ONE (12:28)
[2024-06-14] MEDS: AZTREONAM 1 GM in DEXTROSE 5%-WATER - 50 ML IVPB SCH (18:01)
[2024-06-15 09:12] LABS: BASO % 0.6 % (0-2.0); EOS % 4.4 % (0-4.5); HEMATOCRIT 33.3 % (35.4-49); HEMOGLOBIN 11.2 GM/dL (11.7-16.9); LYMPH % 20.9 % (8-40); MCH 29.4 pg (25.7-33.7); MCHC 33.6 g/dl (32.0-35.9); MEAN CELL VOLUME 87.5 fl (80-96); MEAN PLT VOLUME 8.6 fl (7.5-11.1); MONO % 9.6 % (3.8-10.2); NEUT % 64.5 % (42.8-82.8); PLATELET COUNT 161 10^3/uL (134-434); RBC 3.81 M/mm3 (4.00-5.60); WHITE BLOOD COUNT 7.2 K/mm3 (4.0-10.0)
[2024-06-15 09:22] LABS: POTASSIUM 4.1 mmol/L (3.5-5.1)
[2024-06-15 09:33] LABS: CALCIUM 8.5 mg/dL (8.5-10.1)
[2024-06-15 09:34] LABS: ALBUMIN 2.8 g/dl (3.4-5.0)
[2024-06-15 09:37] LABS: CREATININE 1.2 mg/dL (0.55-1.3)
[2024-06-15 09:39] LABS: TOT PROT 5.6 g/dl (6.4-8.2)
[2024-06-16 09:36] LABS: BASO % 0.4 % (0-2.0); EOS % 3.4 % (0-4.5); HEMATOCRIT 33.6 % (35.4-49); HEMOGLOBIN 11.3 GM/dL (11.7-16.9); LYMPH % 17.2 % (8-40); MCH 29.3 pg (25.7-33.7); MCHC 33.7 g/dl (32.0-35.9); MEAN CELL VOLUME 86.9 fl (80-96); MEAN PLT VOLUME 8.6 fl (7.5-11.1); MONO % 10.6 % (3.8-10.2); NEUT % 68.4 % (42.8-82.8); PLATELET COUNT 168 10^3/uL (134-434); RBC 3.87 M/mm3 (4.00-5.60); RDW 15.6 % (11.9-15.9); WHITE BLOOD COUNT 6.2 K/mm3 (4.0-10.0)
[2024-06-16 09:49] LABS: POTASSIUM 4.2 mmol/L (3.5-5.1)
[2024-06-16 09:53] LABS: CALCIUM 8.7 mg/dL (8.5-10.1)
[2024-06-16 09:54] LABS: BLOOD UREA NITROGEN 17.7 mg/dL (7-18); MAGNESIUM 2.3 mg/dL (1.8-2.4)
[2024-06-16 15:13] VITALS: BP 94/57; PULSE 71; RESP 20; TEMP 98.2
[2024-06-16] MEDS ORDERED: PANTOPRAZOLE 40 MG TABLET PO SCH (22:00)
== END 2024-06-16 19:42 | disposition home or self-care (01) | DRG 394 ==
LOC: JER 11:53 → JERBED 17:05 → J7W 21:34 → OBSVTOIN 06-13 11:30 → J7W 06-16 12:54
PROVIDERS: ADMIT Student in an Organized Health Care Education/Training Program; ATTEND Internal Medicine
PROC: 0DB58ZX Excision of Esophagus, Via Natural or Artificial Opening Endoscopic, Diagnostic (ICD-10-PCS; 2024-06-13)
PROC: 0DC28ZZ Extirpation of Matter from Middle Esophagus, Via Natural or Artificial Opening Endoscopic (ICD-10-PCS; principal; 2024-06-13 14:38)
DX: T18.128A Food in esophagus causing other injury, initial encounter (principal); I48.92 Unspecified atrial flutter; I50.32 Chronic diastolic (congestive) heart failure; N17.9 Acute kidney failure, unspecified; R78.81 Bacteremia; I11.0 Hypertensive heart disease with heart failure; I27.20 Pulmonary hypertension, unspecified; E11.42 Type 2 diabetes mellitus with diabetic polyneuropathy; I70.0 Atherosclerosis of aorta; W44.F3XA Food entering into or through a natural orifice, initial encounter; K22.2 Esophageal obstruction; I48.91 Unspecified atrial fibrillation; T50.1X5A Adverse effect of loop [high-ceiling] diuretics, initial encounter; E78.5 Hyperlipidemia, unspecified; I25.10 Atherosclerotic heart disease of native coronary artery without angina pectoris; M48.00 Spinal stenosis, site unspecified; K44.9 Diaphragmatic hernia without obstruction or gangrene; R29.6 Repeated falls; K20.90 Esophagitis, unspecified without bleeding; B96.1 Klebsiella pneumoniae [K. pneumoniae] as the cause of diseases classified elsewhere; Y92.099 Unspecified place in other non-institutional residence as the place of occurrence of the external cause; Y99.9 Unspecified external cause status; Z85.46 Personal history of malignant neoplasm of prostate; J45.909 Unspecified asthma, uncomplicated
CPT/HCPCS: 36415; 70450-TC; 71045-TC-FY; 72125-TC; 74220-TC-FY; 74230-TC-FY; 80048; 80053; 81003; 83735; 83880; 84484; 85025; 85027; 85610; 85730; 86850; 86900; 86901; 87086; 87186; 88305-TC; 88312-TC; 92611-GN; 93005; 93010; 97116-GP; 97162-GP; 99285-25; G0378

== ENCOUNTER 2024-07-01 12:29 | Inpatient (IN) | payer OTHER, BC ==
[2024-07-01] MEDS ORDERED: ACETAMINOPHEN INJECTION 100 ML ONE (14:30)
[2024-07-01 14:34] LABS: BASO % 0.6 % (0-2.0); EOS % 0.6 % (0-4.5); HEMATOCRIT 35.1 % (35.4-49); HEMOGLOBIN 11.8 GM/dL (11.7-16.9); LYMPH % 9.9 % (8-40); MCH 29.1 pg (25.7-33.7); MCHC 33.5 g/dl (32.0-35.9); MEAN CELL VOLUME 86.7 fl (80-96); MEAN PLT VOLUME 7.9 fl (7.5-11.1); MONO % 14.3 % (3.8-10.2); NEUT % 74.6 % (42.8-82.8); PLATELET COUNT 329 10^3/uL (134-434); RBC 4.05 M/mm3 (4.00-5.60); RDW 15.7 % (11.9-15.9); WHITE BLOOD COUNT 9.2 K/mm3 (4.0-10.0)
[2024-07-01 14:35] LABS: VENOUS BASE EXCESS 1.2 mmol/L (-2-2); VENOUS PCO2 44.6 mmHg (38-52); VENOUS PH 7.392 (7.310-7.410)
[2024-07-01] MEDS: ACETAMINOPHEN 1000 MG/100 ML BAG IVPB ONE (14:39)
[2024-07-01 14:42] LABS: INR 1.69 (0.83-1.09); PROTHROMBIN TIME (PATIENT) 19.1 SEC (9.7-13.0)
[2024-07-01 14:44] LABS: ACTIVATED PTT 37.4 SECONDS (25.2-36.5)
[2024-07-01 14:50] LABS: POTASSIUM 4.7 mmol/L (3.5-5.1)
[2024-07-01 14:52] LABS: CALCIUM 8.6 mg/dL (8.5-10.1)
[2024-07-01 14:53] LABS: BLOOD UREA NITROGEN 26.4 mg/dL (7-18); MAGNESIUM 2.1 mg/dL (1.8-2.4)
[2024-07-01 14:56] LABS: CREATININE 1.5 mg/dL (0.55-1.3)
[2024-07-01 14:57] LABS: PHOSPHOROUS 2.8 mg/dL (2.5-4.9)
[2024-07-01 14:58] LABS: BILIRUBIN,TOTAL 1.3 mg/dL (0.2-1); TOT PROT 6.8 g/dl (6.4-8.2)
[2024-07-01 15:01] LABS: N-TERMINAL BNP 8932.3 pg/ml (5-450)
[2024-07-01] MEDS ORDERED: CEFTRIAXONE 1 GM/50 ML BAG ONE (16:03)
[2024-07-01 16:08] LABS: URINE APPEARANCE CLEAR; URINE BILIRUBIN NEGATIVE (NEGATIVE); URINE COLOR YELLOW; URINE GLUCOSE (UA) 3+ (NEGATIVE); URINE KETONE NEGATIVE (NEGATIVE); URINE LEUK ESTERASE NEGATIVE (NEGATIVE); URINE NITRITE NEGATIVE (NEGATIVE); URINE PROTEIN NEGATIVE (NEGATIVE)
[2024-07-01] MEDS ORDERED: AZITHROMYCIN IVPB 500 MG in DEXTROSE 5%-WATER - 250 ML IVPB ONE (16:10)
[2024-07-01] MEDS ORDERED: CALCIUM GLUC IN NACL, ISO-OSM 1 GM/50 ML BAG IVPB ONE (16:32)
[2024-07-01] MEDS ORDERED: AZITHROMYCIN IVPB 500 MG/250 ML BAG IVPB ONE (16:32)
[2024-07-01] MEDS: CEFTRIAXONE 1 GM in DEXTROSE 5%-WATER - 100 ML IVPB ONE (16:45)
[2024-07-01] MEDS: CALCIUM GLUC IN NACL, ISO-OSM 1 GM/50 ML BAG IVPB ONE (16:57)
[2024-07-01] MEDS: SODIUM CHLORIDE 0.9% 500 ML INFUS.BAG IV ONE ×2 (17:45→19:40)
[2024-07-01] MEDS ORDERED: AZITHROMYCIN 500 MG TABLET ONE (17:51)
[2024-07-01] MEDS: AZITHROMYCIN 250 MG TABLET PO ONE (17:53)
[2024-07-01] MEDS: NOREPINEPHRINE 0.9 % NACL 8 MG/250 ML BAG IVPB SCH (21:49)
[2024-07-01] MEDS ORDERED: NOREPINEPHRINE BITARTRATE 4 MG/4 ML ML IV ONE (21:58)
[2024-07-01] MEDS: MIDODRINE HCL 5 MG TABLET PO SCH (22:20)
[2024-07-01] MEDS: NOREPINEPHRINE BITARTRATE 4,000 MCG in DEXTROSE 5%-WATER - 496 ML IV SCH (22:21)
[2024-07-01] MEDS ORDERED: ATORVASTATIN CA 40 MG TABLET (FP) ONE (22:26)
[2024-07-01] MEDS ORDERED: APIXABAN 2.5 MG TABLET ONE (22:26)
[2024-07-01] MEDS: APIXABAN 2.5 MG TABLET PO SCH (22:28)
[2024-07-01] MEDS: ATORVASTATIN CA 40 MG TABLET (FP) PO SCH (22:29)
[2024-07-01] MEDS: CHLORHEXIDINE GLUCONATE 4% CLEANSER FOR DECOLONIZATION TP SCH (23:00)
[2024-07-02 00:38] LABS: POTASSIUM 3.5 mmol/L (3.5-5.1)
[2024-07-02 00:40] LABS: ALBUMIN 2.5 g/dl (3.4-5.0)
[2024-07-02 00:42] LABS: BLOOD UREA NITROGEN 26.6 mg/dL (7-18); MAGNESIUM 1.8 mg/dL (1.8-2.4)
[2024-07-02 00:45] LABS: BILIRUBIN,TOTAL 0.9 mg/dL (0.2-1); CREATININE 1.3 mg/dL (0.55-1.3); PHOSPHOROUS 2.7 mg/dL (2.5-4.9); TOT PROT 5.5 g/dl (6.4-8.2)
[2024-07-02] MEDS: MUPIROCIN 2% TOPICAL OINTMENT FOR DECOLONIZATION NS SCH (01:39)
[2024-07-02 07:40] LABS: INR 1.91 (0.83-1.09); PROTHROMBIN TIME (PATIENT) 21.6 SEC (9.7-13.0)
[2024-07-02 07:42] LABS: ACTIVATED PTT 37.2 SECONDS (25.2-36.5)
[2024-07-02 07:42] LABS: BASO % 0.6 % (0-2.0); EOS % 3.1 % (0-4.5); HEMATOCRIT 30.7 % (35.4-49); HEMOGLOBIN 10.3 GM/dL (11.7-16.9); LYMPH % 20.8 % (8-40); MCH 29.1 pg (25.7-33.7); MCHC 33.7 g/dl (32.0-35.9); MEAN CELL VOLUME 86.6 fl (80-96); MEAN PLT VOLUME 7.6 fl (7.5-11.1); MONO % 16.4 % (3.8-10.2); NEUT % 59.1 % (42.8-82.8); PLATELET COUNT 257 10^3/uL (134-434); RBC 3.55 M/mm3 (4.00-5.60); RDW 15.1 % (11.9-15.9); WHITE BLOOD COUNT 6.9 K/mm3 (4.0-10.0)
[2024-07-02] MEDS: CEFTRIAXONE 1 G/50 ML PREMIX 50 ML IVPB SCH (09:36)
[2024-07-02] MEDS: AZITHROMYCIN IVPB 500 MG/250 ML BAG IVPB SCH (09:36)
[2024-07-02] MEDS: PANTOPRAZOLE 40 MG TABLET PO SCH (09:37)
[2024-07-02] MEDS: INSULIN ASPART SLIDING SCALE (NOVOLOG) 1 VIAL SQ SCH (10:52)
[2024-07-02] MEDS: MAG HYDROX/AL HYDROX/SIMETH 30 ML UNIT-DOSE CUP PO PRN (10:52)
[2024-07-02 11:02] LABS: BASO % 1.1 % (0-2.0); EOS % 1.9 % (0-4.5); HEMATOCRIT 33.2 % (35.4-49); HEMOGLOBIN 10.9 GM/dL (11.7-16.9); LYMPH % 16.4 % (8-40); MCH 28.6 pg (25.7-33.7); MCHC 32.9 g/dl (32.0-35.9); MEAN CELL VOLUME 86.8 fl (80-96); MEAN PLT VOLUME 7.5 fl (7.5-11.1); NEUT % 65.6 % (42.8-82.8); PLATELET COUNT 274 10^3/uL (134-434); RBC 3.83 M/mm3 (4.00-5.60); RDW 15.3 % (11.9-15.9); WHITE BLOOD COUNT 7.5 K/mm3 (4.0-10.0)
[2024-07-02 11:18] LABS: POTASSIUM 4.3 mmol/L (3.5-5.1)
[2024-07-02 11:20] LABS: ALBUMIN 2.8 g/dl (3.4-5.0); BLOOD UREA NITROGEN 26.9 mg/dL (7-18); CALCIUM 8.5 mg/dL (8.5-10.1); MAGNESIUM 2.1 mg/dL (1.8-2.4)
[2024-07-02 11:23] LABS: CREATININE 1.4 mg/dL (0.55-1.3); PHOSPHOROUS 2.6 mg/dL (2.5-4.9)
[2024-07-02 11:25] LABS: BILIRUBIN,TOTAL 1.1 mg/dL (0.2-1); TOT PROT 6.2 g/dl (6.4-8.2)
[2024-07-02] MEDS: METOPROLOL TARTRATE 25 MG TABLET (FP) PO SCH (12:49)
[2024-07-02] MEDS: MIDODRINE HCL 5 MG TABLET PO SCH (13:12)
[2024-07-02] MEDS: MELATONIN 5 MG TABLETS PO ONE (22:48)
[2024-07-02] MEDS: MELATONIN 5 MG TABLETS PO PRN (23:02)
[2024-07-03 07:05] LABS: BASO % 0.8 % (0-2.0); EOS % 2.4 % (0-4.5); HEMATOCRIT 30.5 % (35.4-49); HEMOGLOBIN 10.7 GM/dL (11.7-16.9); LYMPH % 19.5 % (8-40); MCH 29.9 pg (25.7-33.7); MEAN CELL VOLUME 85.6 fl (80-96); MONO % 11.1 % (3.8-10.2); NEUT % 66.2 % (42.8-82.8); PLATELET COUNT 266 10^3/uL (134-434); RBC 3.57 M/mm3 (4.00-5.60); RDW 15.2 % (11.9-15.9); WHITE BLOOD COUNT 6.4 K/mm3 (4.0-10.0)
[2024-07-03 07:25] LABS: POTASSIUM 4.3 mmol/L (3.5-5.1)
[2024-07-03 07:29] LABS: ALBUMIN 2.4 g/dl (3.4-5.0); CALCIUM 8.4 mg/dL (8.5-10.1)
[2024-07-03 07:34] LABS: BILIRUBIN,TOTAL 0.6 mg/dL (0.2-1); CREATININE 1.3 mg/dL (0.55-1.3); TOT PROT 5.7 g/dl (6.4-8.2)
[2024-07-03] MEDS: MELATONIN 5 MG TABLETS PO PRN (21:25)
[2024-07-04 06:39] LABS: BASO % 0.7 % (0-2.0); EOS % 1.9 % (0-4.5); HEMATOCRIT 32.4 % (35.4-49); HEMOGLOBIN 11.1 GM/dL (11.7-16.9); LYMPH % 17.7 % (8-40); MCHC 34.3 g/dl (32.0-35.9); MEAN CELL VOLUME 84.8 fl (80-96); MEAN PLT VOLUME 7.7 fl (7.5-11.1); MONO % 10.7 % (3.8-10.2); PLATELET COUNT 276 10^3/uL (134-434); RBC 3.82 M/mm3 (4.00-5.60); RDW 15.2 % (11.9-15.9); WHITE BLOOD COUNT 6.7 K/mm3 (4.0-10.0)
[2024-07-04 06:44] LABS: POTASSIUM 4.3 mmol/L (3.5-5.1)
[2024-07-04 06:49] LABS: CALCIUM 8.7 mg/dL (8.5-10.1)
[2024-07-04 06:50] LABS: ALBUMIN 2.4 g/dl (3.4-5.0); BLOOD UREA NITROGEN 30.1 mg/dL (7-18)
[2024-07-04 06:52] LABS: BILIRUBIN,TOTAL 0.7 mg/dL (0.2-1); CREATININE 1.3 mg/dL (0.55-1.3)
[2024-07-04 06:53] LABS: TOT PROT 5.8 g/dl (6.4-8.2)
[2024-07-04] MEDS: FUROSEMIDE 40 MG TABLET (FP) PO ONE (17:49)
[2024-07-04] MEDS: METOPROLOL TARTRATE 50 MG TABLET (FP) PO SCH (21:34)
[2024-07-05 07:19] LABS: BASO % 0.9 % (0-2.0); HEMATOCRIT 34.4 % (35.4-49); HEMOGLOBIN 11.3 GM/dL (11.7-16.9); LYMPH % 18.3 % (8-40); MCH 28.4 pg (25.7-33.7); MCHC 32.7 g/dl (32.0-35.9); MEAN CELL VOLUME 86.9 fl (80-96); MEAN PLT VOLUME 7.8 fl (7.5-11.1); MONO % 12.5 % (3.8-10.2); NEUT % 67.3 % (42.8-82.8); PLATELET COUNT 234 10^3/uL (134-434); RBC 3.96 M/mm3 (4.00-5.60); RDW 15.1 % (11.9-15.9); WHITE BLOOD COUNT 6.8 K/mm3 (4.0-10.0)
[2024-07-05 07:51] LABS: POTASSIUM 4.8 mmol/L (3.5-5.1)
[2024-07-05 07:53] LABS: ALBUMIN 2.6 g/dl (3.4-5.0); BLOOD UREA NITROGEN 35.5 mg/dL (7-18); CALCIUM 8.9 mg/dL (8.5-10.1)
[2024-07-05 07:54] LABS: MAGNESIUM 2.4 mg/dL (1.8-2.4)
[2024-07-05 07:56] LABS: CREATININE 1.4 mg/dL (0.55-1.3)
[2024-07-05 07:58] LABS: BILIRUBIN,TOTAL 0.7 mg/dL (0.2-1); TOT PROT 6.1 g/dl (6.4-8.2)
[2024-07-05] MEDS ORDERED: MAG HYDROX/AL HYDROX/SIMETH 30 ML UNIT-DOSE CUP PO PRN (08:37)
[2024-07-05] MEDS: MIDODRINE HCL 2.5 MG TABLET PO SCH (09:56)
[2024-07-05] MEDS: PANTOPRAZOLE 40 MG TABLET PO SCH (09:56)
[2024-07-05] MEDS: APIXABAN 2.5 MG TABLET PO SCH (09:56)
[2024-07-05] MEDS: FUROSEMIDE 40 MG/4 ML INJECTABLE VIAL IVPUSH ONE (12:07)
[2024-07-05] MEDS: INSULIN ASPART SLIDING SCALE (NOVOLOG) 1 VIAL SQ SCH (12:15)
[2024-07-05] MEDS: MAG HYDROX/AL HYDROX/SIMETH 30 ML UNIT-DOSE CUP PO SCH (13:17)
[2024-07-05] MEDS ORDERED: ATORVASTATIN CA 40 MG TABLET (FP) PO SCH (22:00)
[2024-07-06 07:56] LABS: BASO % 0.3 % (0-2.0); EOS % 0.1 % (0-4.5); HEMOGLOBIN 11.8 GM/dL (11.7-16.9); MCHC 31.1 g/dl (32.0-35.9); MEAN CELL VOLUME 90.2 fl (80-96); MEAN PLT VOLUME 9.4 fl (7.5-11.1); MONO % 11.2 % (3.8-10.2); NEUT % 79.4 % (42.8-82.8); PLATELET COUNT 136 10^3/uL (134-434); RBC 4.22 M/mm3 (4.00-5.60); RDW 15.6 % (11.9-15.9); WHITE BLOOD COUNT 11.8 K/mm3 (4.0-10.0)
[2024-07-06 08:16] LABS: POTASSIUM 5.2 mmol/L (3.5-5.1)
[2024-07-06 08:19] LABS: CALCIUM 9.2 mg/dL (8.5-10.1)
[2024-07-06 08:20] LABS: ALBUMIN 2.9 g/dl (3.4-5.0); BLOOD UREA NITROGEN 48.8 mg/dL (7-18); MAGNESIUM 2.9 mg/dL (1.8-2.4)
[2024-07-06 08:23] LABS: CREATININE 2.6 mg/dL (0.55-1.3); PHOSPHOROUS 6.5 mg/dL (2.5-4.9)
[2024-07-06 08:25] LABS: BILIRUBIN,TOTAL 1.7 mg/dL (0.2-1); TOT PROT 6.5 g/dl (6.4-8.2)
[2024-07-06 13:39] LABS: ARTERIAL BLD GAS O2 SATURATION 98.6 % (95-98); ARTERIAL BLOOD GAS BASE EXCESS -13.8 mmol/L (-2-2); ARTERIAL BLOOD GAS PO2 138.5 mmHg (80-100); ARTERIAL BLOOD GAS pH 7.296 (7.350-7.450)
[2024-07-06] MEDS: DEXTROSE 5%-0.45% SALINE 1,000 ML IV SCH (13:47)
[2024-07-06] MEDS: DEXTROSE 5%-NORMAL SALINE 1,000 ML IV SCH ×2 (14:19→15:33)
[2024-07-06 14:22] LABS: BASO % 0.2 % (0-2.0); EOS % 0.1 % (0-4.5); HEMATOCRIT 35.9 % (35.4-49); HEMOGLOBIN 11.1 GM/dL (11.7-16.9); LYMPH % 8.1 % (8-40); MCH 27.8 pg (25.7-33.7); MCHC 30.8 g/dl (32.0-35.9); MEAN CELL VOLUME 90.4 fl (80-96); MEAN PLT VOLUME 9.8 fl (7.5-11.1); MONO % 10.6 % (3.8-10.2); PLATELET COUNT 104 10^3/uL (134-434); RBC 3.97 M/mm3 (4.00-5.60); RDW 16.1 % (11.9-15.9); WHITE BLOOD COUNT 14.2 K/mm3 (4.0-10.0)
[2024-07-06 14:40] LABS: CHLORIDE 97 mmol/L (98-107); SODIUM 133 mmol/L (136-145)
[2024-07-06 14:41] LABS: CALCIUM 9.3 mg/dL (8.5-10.1); POTASSIUM 6.2 mmol/L (3.5-5.1)
[2024-07-06 14:42] LABS: ANION GAP 20 mmol/L (4-13); BLOOD UREA NITROGEN 52.8 mg/dL (7-18); CO2 16 mmol/L (21-32); GLUCOSE,RANDOM 134 mg/dL (74-106)
[2024-07-06 14:45] LABS: CREATININE 2.9 mg/dL (0.55-1.3)
[2024-07-06 14:45] LABS: LACTIC ACID 11.5 mmol/L (0.4-2.0)
[2024-07-06] MEDS ORDERED: DEXTROSE 50%-WATER - 25 GM/50 ML VIAL IVPUSH ONE (14:53)
[2024-07-06] MEDS ORDERED: LACTATED RINGERS SOLUTION 1,000 ML/1,000 ML INFUS.BAG IV SCH (15:00)
[2024-07-06] MEDS: SODIUM ZIRCONIUM CYCLOSILICATE (LOKELMA) 5 GM PACKET PO SCH (15:18)
[2024-07-06] MEDS: CALCIUM GLUCONATE 10% - 1,000 MG/10 ML VIAL IVPB ONE (15:18)
[2024-07-06] MEDS: DEXTROSE 50%-WATER 25 GM/50 ML DISP.SYRIN IVPUSH ONE (15:32)
[2024-07-06] MEDS: VANCOMYCIN ORAL SOLUTION 125 MG/2.5 ML PO SCH (15:53)
[2024-07-06] MEDS: INSULIN REGULAR HUMAN 100 UNITS/ML *VIAL IVPUSH ONE (15:53)
[2024-07-06] MEDS: SODIUM CHLORIDE 500 ML IV STA (15:54)
[2024-07-06] MEDS: ALBUTEROL SO4 0.083% IH SOL 2.5 MG/3 ML VIAL.NEB. NEB ONE (16:02)
[2024-07-06 16:08] VITALS: BMI 25.2
[2024-07-06] MEDS: INSULIN ASPART SLIDING SCALE (NOVOLOG) 1 VIAL SQ SCH (17:27)
[2024-07-06 17:36] LABS: LACTIC ACID 12.5 mmol/L (0.4-2.0)
[2024-07-06] MEDS: VANCOMYCIN/WATER FOR INJ (PEG) 1,000 MG/200 ML BAG IVPB ONE (23:24)
[2024-07-07] MEDS ORDERED: SODIUM CHLORIDE 500 ML IV STA (00:01)
[2024-07-07 01:19] LABS: LACTIC ACID 12.1 mmol/L (0.4-2.0)
[2024-07-07] MEDS ORDERED: NOREPINEPHRINE BITARTRATE 4 MG/4 ML ML IV ONE (01:38)
[2024-07-07] MEDS: NOREPINEPHRINE BITARTRATE 4,000 MCG in DEXTROSE 5%-WATER - 496 ML IV SCH (01:59)
[2024-07-07] MEDS ORDERED: PIPERACILLIN/TAZOB 2.25 GM 2.25 GM in DEXTROSE 5%-WATER - 50 ML IVPB SCH (02:00)
[2024-07-07 02:22] LABS: BASO % 0.2 % (0-2.0); EOS % 0.3 % (0-4.5); HEMATOCRIT 33.4 % (35.4-49); HEMOGLOBIN 10.3 GM/dL (11.7-16.9); LYMPH % 10.2 % (8-40); MCHC 30.8 g/dl (32.0-35.9); MEAN PLT VOLUME 10.1 fl (7.5-11.1); MONO % 10.5 % (3.8-10.2); NEUT % 78.8 % (42.8-82.8); RBC 3.67 M/mm3 (4.00-5.60); WHITE BLOOD COUNT 15.3 K/mm3 (4.0-10.0)
[2024-07-07 03:06] LABS: PLATELET COUNT 72 10^3/uL (134-434)
[2024-07-07 03:07] LABS: PLATELET ESTIMATE MOD DECREASED
[2024-07-07 03:34] LABS: ALBUMIN 2.9 g/dl (3.4-5.0); BILIRUBIN,TOTAL 2.1 mg/dL (0.2-1); BLOOD UREA NITROGEN 60.7 mg/dL (7-18); CALCIUM 8.6 mg/dL (8.5-10.1); CREATININE 3.5 mg/dL (0.55-1.3); MAGNESIUM 2.8 mg/dL (1.8-2.4); PHOSPHOROUS 8.4 mg/dL (2.5-4.9); POTASSIUM 5.7 mmol/L (3.5-5.1); TOT PROT 6.4 g/dl (6.4-8.2)
[2024-07-07] MEDS ORDERED: RAPID SEQUENCE INTUBATION KIT NR ONE (05:56)
[2024-07-07] MEDS ORDERED: PHENYLEPHRINE HCL 10 MG/1 ML SINGLE DOSE VIAL ONE (05:59)
[2024-07-07] MEDS: PIPERACILLIN/TAZOB 2.25 GM 2.25 GM/50 ML BAG IVPB SCH (06:03)
[2024-07-07] MEDS ORDERED: CALCIUM CHLORIDE 1 GM/10 ML *DISP.SYRIN ONE (06:07)
[2024-07-07 06:45] LABS: ARTERIAL BLD GAS O2 SATURATION 99.6 % (95-98); ARTERIAL BLOOD GAS BASE EXCESS -26.2 mmol/L (-2-2); ARTERIAL BLOOD GAS PO2 414.7 mmHg (80-100)
[2024-07-07 06:48] LABS: ARTERIAL BLOOD GAS pH 6.908 (7.350-7.450)
[2024-07-07] MEDS ORDERED: DEXTROSE 50%-WATER 25 GM/50 ML DISP.SYRIN ONE ×4 (06:48→13:25)
[2024-07-07 06:52] LABS: HEMATOCRIT 34.2 % (35.4-49); HEMOGLOBIN 10.3 GM/dL (11.7-16.9); MCH 28.3 pg (25.7-33.7); MEAN CELL VOLUME 94.5 fl (80-96); MEAN PLT VOLUME 10.1 fl (7.5-11.1); PLATELET COUNT 64 10^3/uL (134-434); RBC 3.62 M/mm3 (4.00-5.60); RDW 16.8 % (11.9-15.9); WHITE BLOOD COUNT 14.5 K/mm3 (4.0-10.0)
[2024-07-07 06:54] LABS: PROTHROMBIN TIME (PATIENT) 87.9 SEC (9.7-13.0)
[2024-07-07 06:57] LABS: ACTIVATED PTT 43.8 SECONDS (25.2-36.5)
[2024-07-07 07:03] LABS: CHLORIDE 97 mmol/L (98-107); POTASSIUM 5.8 mmol/L (3.5-5.1); SODIUM 135 mmol/L (136-145)
[2024-07-07 07:04] LABS: CHLORIDE 97 mmol/L (98-107); POTASSIUM 5.9 mmol/L (3.5-5.1); SODIUM 137 mmol/L (136-145)
[2024-07-07 07:06] LABS: ALBUMIN 2.7 g/dl (3.4-5.0); ANION GAP 31 mmol/L (4-13); BLOOD UREA NITROGEN 62.8 mg/dL (7-18); CO2 8 mmol/L (21-32)
[2024-07-07 07:07] LABS: AMYLASE 81 U/L (25-115)
[2024-07-07 07:08] LABS: ALBUMIN 2.8 g/dl (3.4-5.0); ANION GAP 33 mmol/L (4-13); BLOOD UREA NITROGEN 61.2 mg/dL (7-18); CO2 7 mmol/L (21-32)
[2024-07-07 07:09] LABS: CREATININE 3.8 mg/dL (0.55-1.3)
[2024-07-07 07:10] LABS: BILIRUBIN,DIRECT 1.5 mg/dL (0.0-0.2)
[2024-07-07 07:11] LABS: CREATININE 3.8 mg/dL (0.55-1.3); TOT PROT 6.1 g/dl (6.4-8.2)
[2024-07-07 07:12] LABS: ALK PHOS 207 U/L (45-117); BILIRUBIN,TOTAL 2.1 mg/dL (0.2-1); TOT PROT 6.1 g/dl (6.4-8.2)
[2024-07-07 07:13] LABS: ALK PHOS 208 U/L (45-117)
[2024-07-07] MEDS ORDERED: INSULIN REGULAR HUMAN 100 UNITS/ML *VIAL IVPUSH ONE (07:18)
[2024-07-07] MEDS: SODIUM BICARBONATE 8.4% 50 MEQ/50 ML DISP.SYRIN IVPUSH ONE ×3 (07:19→10:11)
[2024-07-07] MEDS: DEXTROSE 50%-WATER 25 GM/50 ML DISP.SYRIN IVPUSH ONE ×2 (07:35→09:03)
[2024-07-07] MEDS ORDERED: VASopressin 20 UNITS/ML VIAL IV ONE (07:37)
[2024-07-07 07:38] LABS: CALCIUM 9.9 mg/dL (8.5-10.1); GLUCOSE,RANDOM 44 mg/dL (74-106); GLUCOSE,RANDOM 45 mg/dL (74-106); LACTIC ACID 20.5 mmol/L (0.4-2.0); SGOT/AST 14383 U/L (15-37); SGPT/ALT 5494 U/L (13-61); SGPT/ALT 5591 U/L (13-61)
[2024-07-07] MEDS: VASopressin 40 UNITS/100 ML BAG IV SCH (07:44)
[2024-07-07 08:31] LABS: INR 8.27 (0.83-1.09)
[2024-07-07] MEDS ORDERED: INSULIN REGULAR HUMAN 100 UNITS/ML *VIAL ONE ×3 (08:32→18:44)
[2024-07-07] MEDS ORDERED: INSULIN ASPART SLIDING SCALE (NOVOLOG) 1 VIAL SQ ONE ×2 (08:38→18:44)
[2024-07-07] MEDS: INSULIN REGULAR HUMAN 100 UNITS/ML *VIAL IVPUSH ONE (09:03)
[2024-07-07] MEDS: SODIUM BICARBONATE 8.4% - 75 MEQ in DEXTROSE 5%-WATER - 1,000 ML IV SCH (09:19)
[2024-07-07 10:18] VITALS: RESP 24
[2024-07-07 10:52] LABS: ARTERIAL BLD GAS O2 SATURATION 99.5 % (95-98); ARTERIAL BLOOD GAS BASE EXCESS -20.5 mmol/L (-2-2); ARTERIAL BLOOD GAS PO2 335.1 mmHg (80-100)
[2024-07-07 10:56] LABS: VENT MODE A/C; VENT RATE 20
[2024-07-07 11:00] LABS: ARTERIAL BLOOD GAS pH 6.987 (7.350-7.450)
[2024-07-07] MEDS: SODIUM BICARBONATE 8.4% 50 MEQ/50 ML DISP.SYRIN IVPUSH SCH (11:36)
[2024-07-07] MEDS ORDERED: DEXTROSE 5% IVPB ONE (12:30)
[2024-07-07] MEDS ORDERED: WATER IVPB ONE (12:30)
[2024-07-07] MEDS ORDERED: ACETYLCYSTEINE IVPB ONE (12:30)
[2024-07-07] MEDS: NOREPINEPHRINE BITARTRATE/D5W 8 MG/250 ML BAG IVPB SCH (13:00)
[2024-07-07] MEDS ORDERED: NOREPINEPHRINE 0.9 % NACL 8 MG/250 ML BAG IVPB SCH (13:30)
[2024-07-07] MEDS: WATER IVPB ONE ×2 (13:55→14:48)
[2024-07-07] MEDS: ACETYLCYSTEINE IVPB ONE ×2 (13:55→14:48)
[2024-07-07] MEDS: DEXTROSE 5% IVPB ONE ×2 (13:55→14:48)
[2024-07-07 14:43] VITALS: BP 37/24; PULSE 136; TEMP 94.8
[2024-07-07 15:50] LABS: ARTERIAL BLD GAS O2 SATURATION 98.9 % (95-98); ARTERIAL BLOOD GAS BASE EXCESS -23.5 mmol/L (-2-2); ARTERIAL BLOOD GAS PO2 230.9 mmHg (80-100)
[2024-07-07 15:56] LABS: HEMATOCRIT 16.3 % (35.4-49); MCHC 28.5 g/dl (32.0-35.9); MEAN CELL VOLUME 98.2 fl (80-96); MEAN PLT VOLUME 8.8 fl (7.5-11.1); PLATELET COUNT 68 10^3/uL (134-434); RBC 1.66 M/mm3 (4.00-5.60); RDW 16.3 % (11.9-15.9); WHITE BLOOD COUNT 11.7 K/mm3 (4.0-10.0)
[2024-07-07 16:02] LABS: HEMOGLOBIN 4.7 GM/dL (11.7-16.9)
[2024-07-07 16:04] LABS: VENT MODE A/C; VENT RATE 20
[2024-07-07 16:05] LABS: ARTERIAL BLOOD GAS pH 6.941 (7.350-7.450)
[2024-07-07 16:13] LABS: CHLORIDE 92 mmol/L (98-107); SODIUM 139 mmol/L (136-145)
[2024-07-07 16:16] LABS: ALBUMIN 1.6 g/dl (3.4-5.0); ANION GAP 37 mmol/L (4-13); BLOOD UREA NITROGEN 61.7 mg/dL (7-18); CALCIUM 8.4 mg/dL (8.5-10.1); CO2 10 mmol/L (21-32); GLUCOSE,RANDOM 205 mg/dL (74-106); POTASSIUM 6.2 mmol/L (3.5-5.1)
[2024-07-07 16:19] LABS: CREATININE 3.9 mg/dL (0.55-1.3)
[2024-07-07 16:20] LABS: BILIRUBIN,TOTAL 1.3 mg/dL (0.2-1)
[2024-07-07 16:23] LABS: ALK PHOS 167 U/L (45-117); TOT PROT 3.8 g/dl (6.4-8.2)
[2024-07-07 16:33] LABS: ANISOCYTOSIS 3+; MACROCYTOSIS 0
[2024-07-07 16:38] LABS: SGOT/AST 9465 U/L (15-37); SGPT/ALT 3601 U/L (13-61)
[2024-07-07 17:31] LABS: PROTHROMBIN TIME (PATIENT) 80.8 SEC (9.7-13.0)
[2024-07-07 17:32] LABS: INR 7.45 (0.83-1.09)
== END 2024-07-07 18:55 | disposition expired | DRG 291 ==
LOC: JER 12:29 → JERBED 16:26 → OBSVTOIN 21:22 → JERBED 22:50 → JICU 23:13 → J4S 07-04 15:27 → JICU 07-07 01:35
PROVIDERS: ADMIT Internal Medicine Pulmonary Disease; ATTEND Internal Medicine Pulmonary Disease
PROC: 5A12012 Performance of Cardiac Output, Single, Manual (ICD-10-PCS; principal; 2024-07-07)
PROC: 5A1945Z Respiratory Ventilation, 24-96 Consecutive Hours (ICD-10-PCS; 2024-07-07)
PROC: 0BH17EZ Insertion of Endotracheal Airway into Trachea, Via Natural or Artificial Opening (ICD-10-PCS; 2024-07-07)
PROC: 05HM33Z Insertion of Infusion Device into Right Internal Jugular Vein, Percutaneous Approach (ICD-10-PCS; 2024-07-07)
PROC: B543ZZA Ultrasonography of Right Jugular Veins, Guidance (ICD-10-PCS; 2024-07-07)
PROC: 30233L1 Transfusion of Nonautologous Fresh Plasma into Peripheral Vein, Percutaneous Approach (ICD-10-PCS; 2024-07-07)
PROC: 30233K1 Transfusion of Nonautologous Frozen Plasma into Peripheral Vein, Percutaneous Approach (ICD-10-PCS; 2024-07-07)
DX: I13.0 Hypertensive heart and chronic kidney disease with heart failure and stage 1 through stage 4 chronic kidney disease, or unspecified chronic kidney disease (principal); A41.9 Sepsis, unspecified organism; I50.43 Acute on chronic combined systolic (congestive) and diastolic (congestive) heart failure; J18.9 Pneumonia, unspecified organism; R65.21 Severe sepsis with septic shock; J96.00 Acute respiratory failure, unspecified whether with hypoxia or hypercapnia; K72.00 Acute and subacute hepatic failure without coma; N17.9 Acute kidney failure, unspecified; E87.20 Acidosis, unspecified; Z85.46 Personal history of malignant neoplasm of prostate; I48.91 Unspecified atrial fibrillation; I95.9 Hypotension, unspecified; E11.9 Type 2 diabetes mellitus without complications; N18.9 Chronic kidney disease, unspecified; R13.10 Dysphagia, unspecified; I46.9 Cardiac arrest, cause unspecified; R57.0 Cardiogenic shock; K72.90 Hepatic failure, unspecified without coma; I25.10 Atherosclerotic heart disease of native coronary artery without angina pectoris; E87.5 Hyperkalemia; K20.90 Esophagitis, unspecified without bleeding; E78.5 Hyperlipidemia, unspecified; R74.01 Elevation of levels of liver transaminase levels
CPT/HCPCS: 0241U-QW; 36415; 36430; 36600; 71045-TC-FY; 71250-TC; 74018-TC-FY; 74021-TC-FY; 74176-TC; 76705-TC; 80048; 80053; 81003; 82140; 82150; 82248; 82308; 82550; 82803; 82962; 83605; 83690; 83735; 83880; 84100; 84132; 84436; 84443; 84479; 84484; 85025; 85610; 85730; 86038; 86705; 86708; 86850; 86900; 86901; 87040; 87086; 87324; 87340; 87449; 87481; 87517; 87899; 93005; 93010; 93306-TC; 94002; 94640; 97116-GP; 97162-GP; 99285-25; G0378; J0131; J3490; P9017